=== PATIENT | male | born 1945 | race Caucasian/White ===

== ENCOUNTER 2016-09-08 00:34 | Inpatient (IN) | payer OTHER, BC ==
[2016-09-08] MEDS ORDERED: ACETAMINOPHEN 325 MG TABLET (FP) PO ONE (01:39)
[2016-09-08] MEDS ORDERED: SODIUM CHLORIDE 1,000 ML IV STA ×2 (01:39→08:22)
[2016-09-08] MEDS ORDERED: METOCLOPRAMIDE HCL INJECTION 10 MG/2 ML VIAL IVPB ONE (01:39)
[2016-09-08] MEDS ORDERED: METOCLOPRAMIDE HCL INJECTION 10 MG/2 ML VIAL ONE (01:41)
[2016-09-08] MEDS ORDERED: ACETAMINOPHEN 325 MG TABLET (FP) ONE (01:41)
--- NOTE | 2016-09-08 01:43 | PDOC ---
History of Present Illness - General History Source: Patient, Family Exam Limitations: No Limitations - History of Present Illness Initial Comments: 09/08/16 01:51 The patient is a 71 year old male, with a significant past medical history of HTN (on Benacar) and cerebral aneurysm w/ coil embolism (2012), who presents to the emergency department with nausea, lightheadedness and a mild frontal headache since 7PM this evening. The patient describes the lightheadedness as the room spinning and reports that it is worse when sitting up. The patient reports that he was in his usual state of health this morning and went about his normal day. He reports that he ate chili with jalapenos for dinner and that his symptoms began about a half an hour after he finished dinner. The patient additionally reports left upper extremity tingling for the past 2 hours, just as he was leaving to come his house to come to the ED. The patient denies shortness of breath or chest pain. The patient denies fever, chills, cough, vomiting, diarrhea, dysuria or any recent illnesses. The patients is at the bedside. Allergies: None reported. Past Surgical History: Coil Embolism ([facility] - 2012). Social History: Non smoker. Denies alcohol or drug use. PCP: Dr. Meghana Gallego Neurologist: Dr. Gera Dobson ([facility]) <Naty Auguste - Last Filed: 09/08/16 01:55> <Candy Mederos - Last Filed: 09/09/16 19:59> - General History Source: Patient Exam Limitations: No Limitations <Musa Lou - Last Filed: 09/13/16 13:41> - General Chief Complaint: Lightheaded Stated Complaint: NAUSEA Time Seen by Provider: 09/08/16 00:38 Past History <Naty Auguste - Last Filed: 09/08/16 01:55> <Candy Mederos - Last Filed: 09/09/16 19:59> - Past Medical History Anemia: No Asthma: No Cancer: No Cardiac Disorders: No CVA: No COPD: No CHF: No Dementia: No Diabetes: No GI Disorders: No Disorders: No HTN: No Hypercholesterolemia: No Liver Disease: No Seizures: No Thyroid Disease: No - Psycho/Social/Smoking Cessation Hx Anxiety: No Suicidal Ideation: No Smoking History: Never smoked Have you smoked in the past 12 months: No Information on smoking cessation initiated: No Hx Alcohol Use: No Drug/Substance Use Hx: No Substance Use Type: None Hx Substance Use Treatment: No <Musa Lou - Last Filed: 09/13/16 13:41> - Past Medical History Allergies/Adverse Reactions: Allergies Allergy/AdvReac Type Severity Reaction Status Date / Time No Known Allergies Allergy Verified 09/08/16 00:46 Home Medications: Ambulatory Orders Meclizine HCl [Antivert -] 25 mg PO QID #28 tablet 09/08/16 Olmesartan Medoxomil [Benicar -] 40 mg PO DAILY 09/08/16 Acetaminophen [Tylenol .Regular Strength -] 650 mg PO Q6H PRN #0 tablet Meclizine HCl [Antivert -] 25 mg PO Q8H PRN #30 tablet 09/09/16 Review of Systems - Review of Systems Able to Perform ROS?: Yes Comments:: 09/08/16 01:51 GENERAL/CONSTITUTIONAL: No fever or chills. No weakness. HEAD, EYES, EARS, NOSE AND THROAT: No change in vision. No ear pain or discharge. No sore throat. CARDIOVASCULAR: +Lightheadedness. No chest pain or shortness of breath. RESPIRATORY: No cough, wheezing, or hemoptysis. GASTROINTESTINAL: +Nausea. No vomiting, diarrhea or constipation. GENITOURINARY: No dysuria, frequency, or change in urination. MUSCULOSKELETAL: No joint or muscle swelling or pain. No neck or back pain. SKIN: No rash. NEUROLOGIC: +Tingling of left upper extremity, headache. No vertigo, loss of consciousness, or change in strength. ENDOCRINE: No increased thirst. No abnormal weight change. HEMATOLOGIC/LYMPHATIC: No anemia, easy bleeding, or history of blood clots. ALLERGIC/IMMUNOLOGIC: No hives or skin allergy. <Naty Auguste - Last Filed: 09/08/16 01:55> *Physical Exam - Vital Signs Last Vital Signs Temp Pulse Resp BP Pulse Ox 97.4 F L 58 L 18 113/91 98 09/08/16 00:46 09/08/16 00:46 09/08/16 00:46 09/08/16 00:46 09/08/16 00:46 - Physical Exam Comments: 09/08/16 01:51 GENERAL: Awake, alert, and fully oriented, in no acute distress. HEAD: No signs of trauma. EYES: PERRLA, EOMI, sclera anicteric, conjunctiva clear. ENT: Auricles normal inspection, hearing grossly normal, nares patent, oropharynx clear without exudates. Moist mucosa. NECK: Normal ROM, supple, no lymphadenopathy, JVD, or masses. LUNGS: Breath sounds equal, clear to auscultation bilaterally. No wheezes, and no crackles. HEART: Regular rate and rhythm, normal S1 and S2, no murmurs, rubs or gallops. ABDOMEN: Soft, nontender, normoactive bowel sounds. No guarding, no rebound. No masses. EXTREMITIES: Normal range of motion, no edema. No clubbing or cyanosis. No cords, erythema, or tenderness. NEUROLOGICAL: Cranial nerves II through XII grossly intact. 5/5 strength of both the upper and lower extremities. Sensations intact throughout. No pronator drift. Finger to nose intact. Normal speech, normal gait. SKIN: Warm, dry, normal turgor, no rashes or lesions noted. <Naty Auguste - Last Filed: 09/08/16 01:55> - Vital Signs Last Vital Signs Temp Pulse Resp BP Pulse Ox 97.4 F L 56 L 18 137/90 97 09/08/16 00:46 09/08/16 05:06 09/08/16 05:06 09/08/16 05:06 09/08/16 05:06 <Candy Mederos - Last Filed: 09/09/16 19:59> - Vital Signs Last Vital Signs Temp Pulse Resp BP Pulse Ox 97.4 F L 58 L 18 113/91 98 09/08/16 00:46 09/08/16 00:46 09/08/16 00:46 09/08/16 00:46 09/08/16 00:46 - Physical Exam Comments: 09/13/16 13:41 CORRECTION TO SCRIBE NOTE: CN II-II INTACT, not grossly intact. <Musa Lou - Last Filed: 09/13/16 13:41> ED Treatment Course - LABORATORY CBC & Chemistry Diagram: 09/08/16 01:45 09/08/16 01:45 <Naty Auguste - Last Filed: 09/08/16 01:55> - LABORATORY CBC & Chemistry Diagram: 09/09/16 07:40 09/09/16 07:40 - ADDITIONAL ORDERS Additional order review: Laboratory Results 09/08/16 09/08/16 09/08/16 04:06 01:45 01:45 Sodium 141 Potassium 3.7 Chloride 105 Carbon Dioxide 27 Anion Gap 9 BUN 19 H Creatinine 0.8 D Creat Clearance w eGFR > 60 Random Glucose 133 H D Calcium 8.6 Total Bilirubin 0.5 D AST 14 L D ALT 19 Alkaline Phosphatase 74 D Creatine Kinase 140 151 D Creatine Kinase Index 1.3 CK-MB (CK-2) 1.946 CK-MB (CK-2) Rel Index Cancelled Troponin I < 0.02 < 0.02 Total Protein 6.0 L Albumin 3.8 09/08/16 01:45 RBC 5.24 MCV 83.7 MCHC 33.6 RDW 12.9 MPV 7.9 Neutrophils % 74.4 Lymphocytes % 18.2 D Monocytes % 6.2 D Eosinophils % 0.8 D Basophils % 0.4 D - Medications Given in the ED: ED Medications Discontinued Medications Generic Name Dose Route Start Last Admin Trade Name Freq PRN Reason Stop Dose Admin Acetaminophen 650 mg 09/08/16 01:39 09/08/16 02:26 Tylenol - PO 09/08/16 01:40 650 mg ONCE ONE Administration Sodium Chloride 1,000 mls @ 1,000 mls/hr 09/08/16 01:39 09/08/16 01:51 Normal Saline - IV 09/08/16 02:38 1,000 mls/hr ASDIR STA Administration Metoclopramide HCl 10 mg 09/08/16 01:39 09/08/16 01:51 Reglan Injection - IVPB 09/08/16 01:40 10 mg ONCE ONE Administration <Candy Mederos - Last Filed: 09/09/16 19:59> - LABORATORY CBC & Chemistry Diagram: 09/09/16 07:40 09/09/16 07:40 - RADIOLOGY Radiology Studies Ordered: Category Date Time Status HEAD CT WITHOUT CONTRAST [CT] Stat CT Scan 09/08/16 01:39 Ordered CHEST PA & LAT [RAD] Stat Radiology 09/08/16 01:34 Ordered <Musa Lou - Last Filed: 09/13/16 13:41> Medical Decision Making - Medical Decision Making 09/08/16 05:41 Patient Name: Yimi Martinez THIS IS A PRELIMINARY REPORT FROM IMAGING PAEDIATRIC SURGEON EXAM: CT of the brain without contrast. IMAGES: 78. There is no intra/extra- axial hemorrhage, vasogenic edema/focal mass effect or CT evidence of acute infarction; mild-moderate white matter presumed microvascular disease changes. No disproportionate ventriculomegaly. ACom aneurysm coils. The visualized portions of the paranasal sinuses, orbits and tympanomastoid cavities are unremarkable. Impression: no hemorrhage. THIS DOCUMENT HAS BEEN ELECTRONICALLY SIGNED Pt just vomited up the chilli that he made. His symptoms are likely due to food poisoning/intolerance. Pt will be sent home with . I will prescrive meclizine for vertigo. Pt has TMs clear bilaterlly, partially obscured by cerumen, but no complete wax blockage. Pt will also be given zofran prior to departure now. Pt states that he continues to feel dizzy, so day ER team will discharge him. <Candy Mederos - Last Filed: 09/09/16 19:59> - Medical Decision Making 09/08/16 01:45 A portion of this note was documented by scribe services under my direction. I have reviewed the details of the note, within reason, and agree with the documentation with the following case summary and management plan written by me. Patient treated in the ED. Nursing notes are reviewed and incorporated into the medical decision-making. Vital signs reviewed. Peripheral IV access obtained by the nurse, laboratory studies are drawn and sent, reviewed and interpreted by myself. Vital Signs Temp Pulse Resp BP Pulse Ox 97.4 F L 58 L 18 113/91 98 09/08/16 00:46 09/08/16 00:46 09/08/16 00:46 09/08/16 00:46 09/08/16 00:46 71 year old male with past medical history of HTN, cerebral aneurysm s/p coiling in 2012 at [facility] presents with lightheadedness. The patient was in his usual state of health when he had jalapenos and chili for dinner at 7 pm. At approx 7:15 to 7:30 pm, patient felt lightheaded, worse with sitting up. [place] nauseous and had mild frontal headache. Prior to arrival to ED , he felt tingling in his left fingers but denied chest pain and SOB. Pt is concerned about his cerebral aneurysm. Not worst headache of life. Patient had an MRI/MRA performed at [place] on June 2016. Pt brought results with him, which demonstrated stable to improved aneurysm. I have low suspicion for ACS or for ruptured cerebral aneursym. Will perform two troponins and head CT and observe for several hours. If workup is negative and patient reports feeling better, he can be discharged with PMD follow up. It is certainly very possible that the patient's symptoms could be a reaction from the chili and jalapenos. Patient is reliable and follows up with Dr. Gallego. 09/08/16 01:56 Case signed out to [facility] ED attending Dr. Mederos for further management and disposition. <Musa Lou - Last Filed: 09/13/16 13:41> *DC/Admit/Observation/Transfer - Attestations Scribe Attestion: 09/08/16 01:52 Documentation prepared by Naty Auguste, acting as medical sales associate for Musa Lou MD. <Naty Auguste - Last Filed: 09/08/16 01:55> - Discharge Dispostion Admit: No <Candy Mederos - Last Filed: 09/09/16 19:59> <Musa Lou - Last Filed: 09/13/16 13:41> Diagnosis at time of Disposition: Vertigo - Discharge Dispostion Disposition: HOME Condition at time of disposition: Stable - Prescriptions - Referrals - Patient Instructions
[2016-09-08 01:54] LABS: BASOPHIL 0.4 % (0-2.0); EOSINOPHIL 0.8 % (0-4.5); MCH 28.1 pg (25.7-33.7); MCHC 33.6 g/dl (32.0-35.9); MEAN CELL VOLUME 83.7 fl (80-96); MEAN PLT VOLUME 7.9 fl (7.5-11.1); NEUTROPHILS 74.4 % (42.8-82.8); PLATELET COUNT 169 K/MM3 (134-434); RDW 12.9 % (11.9-15.9); WHITE BLOOD COUNT 5.7 K/mm3 (4.0-10.0)
[2016-09-08 02:25] LABS: ALBUMIN 3.8 g/dl (3.4-5.0); ANION GAP 9 (8-16); BILIRUBIN,TOTAL 0.5 mg/dL (0.2-1.0); CALCIUM 8.6 mg/dL (8.5-10.1); CO2 27 mmol/L (21-32); CREATININE 0.8 mg/dL (0.7-1.3); GLUCOSE,RANDOM 133 mg/dL (74-106); SGOT/AST 14 U/L (15-37); SGPT/ALT 19 U/L (12-78)
[2016-09-08 02:27] LABS: ALK PHOS 74 U/L (45-117); TROPONIN I < 0.02 ng/ml (0.00-0.05)
[2016-09-08 04:39] LABS: TROPONIN I < 0.02 ng/ml (0.00-0.05)
[2016-09-08] MEDS ORDERED: ONDANSETRON 4 MG/2 ML VIAL ONE (05:18)
[2016-09-08] MEDS ORDERED: MECLIZINE HCL 25 MG TABLET (FP) ONE (05:18)
[2016-09-08] MEDS ORDERED: ONDANSETRON 4 MG/2 ML VIAL IVPB ONE (05:18)
[2016-09-08] MEDS: MECLIZINE HCL 25 MG TABLET (FP) PO ONE ×2 (05:40→06:54)
[2016-09-08] MEDS ORDERED: diazePAM CARPU-JECT 10 MG/2 ML DISP.SYRIN IVPUSH ONE (08:22)
--- NOTE | 2016-09-08 08:22 | PDOC ---
*Physical Exam - Vital Signs Last Vital Signs Temp Pulse Resp BP Pulse Ox 97.4 F L 64 18 124/64 97 09/08/16 00:46 09/08/16 06:07 09/08/16 06:07 09/08/16 05:44 09/08/16 06:07 <ReguloNina - Last Filed: 09/08/16 11:40> - Vital Signs Last Vital Signs Temp Pulse Resp BP Pulse Ox 97.4 F L 64 18 124/64 97 09/08/16 00:46 09/08/16 06:07 09/08/16 06:07 09/08/16 05:44 09/08/16 06:07 <Bella Ospina - Last Filed: 09/08/16 21:04> ED Treatment Course - LABORATORY CBC & Chemistry Diagram: 09/08/16 01:45 09/08/16 01:45 - ADDITIONAL ORDERS Additional order review: Laboratory Results 09/08/16 09/08/16 09/08/16 04:06 01:45 01:45 Sodium 141 Potassium 3.7 Chloride 105 Carbon Dioxide 27 Anion Gap 9 BUN 19 H Creatinine 0.8 D Creat Clearance w eGFR > 60 Random Glucose 133 H D Calcium 8.6 Total Bilirubin 0.5 D AST 14 L D ALT 19 Alkaline Phosphatase 74 D Creatine Kinase 140 151 D Creatine Kinase Index 1.3 CK-MB (CK-2) 1.946 CK-MB (CK-2) Rel Index Cancelled Troponin I < 0.02 < 0.02 Total Protein 6.0 L Albumin 3.8 09/08/16 01:45 RBC 5.24 MCV 83.7 MCHC 33.6 RDW 12.9 MPV 7.9 Neutrophils % 74.4 Lymphocytes % 18.2 D Monocytes % 6.2 D Eosinophils % 0.8 D Basophils % 0.4 D - Medications Given in the ED: ED Medications Discontinued Medications Generic Name Dose Route Start Last Admin Trade Name Mendoza PRN Reason Stop Dose Admin Acetaminophen 650 mg 09/08/16 01:39 09/08/16 02:26 Tylenol - PO 09/08/16 01:40 650 mg ONCE ONE Administration Diazepam 5 mg 09/08/16 08:22 09/08/16 08:34 Valium Injection - IVPUSH 09/08/16 08:23 5 mg ONCE ONE Administration Diazepam 5 mg 09/08/16 09:24 09/08/16 09:50 Valium - PO 09/08/16 09:25 5 mg ONCE ONE Administration Sodium Chloride 1,000 mls @ 1,000 mls/hr 09/08/16 01:39 09/08/16 01:51 Normal Saline - IV 09/08/16 02:38 1,000 mls/hr ASDIR STA Administration Sodium Chloride 1,000 mls @ 1,000 mls/hr 09/08/16 08:22 09/08/16 08:34 Normal Saline - IV 09/08/16 09:21 1,000 mls/hr ASDIR STA Administration Meclizine HCl 50 mg 09/08/16 05:18 09/08/16 06:54 Antivert - PO 09/08/16 05:19 50 mg ONCE ONE Administration Metoclopramide HCl 10 mg 09/08/16 01:39 09/08/16 01:51 Reglan Injection - IVPB 09/08/16 01:40 10 mg ONCE ONE Administration Ondansetron HCl 4 mg 09/08/16 05:18 09/08/16 05:23 Zofran Injection IVPB 09/08/16 05:19 4 mg ONCE ONE Administration <Nina Rajput - Last Filed: 09/08/16 11:40> - LABORATORY CBC & Chemistry Diagram: 09/08/16 01:45 09/08/16 01:45 - ADDITIONAL ORDERS Additional order review: Laboratory Results 09/08/16 09/08/16 09/08/16 04:06 01:45 01:45 Sodium 141 Potassium 3.7 Chloride 105 Carbon Dioxide 27 Anion Gap 9 BUN 19 H Creatinine 0.8 D Creat Clearance w eGFR > 60 Random Glucose 133 H D Calcium 8.6 Total Bilirubin 0.5 D AST 14 L D ALT 19 Alkaline Phosphatase 74 D Creatine Kinase 140 151 D Creatine Kinase Index 1.3 CK-MB (CK-2) 1.946 CK-MB (CK-2) Rel Index Cancelled Troponin I < 0.02 < 0.02 Total Protein 6.0 L Albumin 3.8 09/08/16 01:45 RBC 5.24 MCV 83.7 MCHC 33.6 RDW 12.9 MPV 7.9 Neutrophils % 74.4 Lymphocytes % 18.2 D Monocytes % 6.2 D Eosinophils % 0.8 D Basophils % 0.4 D - Medications Given in the ED: ED Medications Discontinued Medications Generic Name Dose Route Start Last Admin Trade Name Mendoza PRN Reason Stop Dose Admin Acetaminophen 650 mg 09/08/16 01:39 09/08/16 02:26 Tylenol - PO 09/08/16 01:40 650 mg ONCE ONE Administration Sodium Chloride 1,000 mls @ 1,000 mls/hr 09/08/16 01:39 09/08/16 01:51 Normal Saline - IV 09/08/16 02:38 1,000 mls/hr ASDIR STA Administration Meclizine HCl 50 mg 09/08/16 05:18 09/08/16 06:54 Antivert - PO 09/08/16 05:19 50 mg ONCE ONE Administration Metoclopramide HCl 10 mg 09/08/16 01:39 09/08/16 01:51 Reglan Injection - IVPB 09/08/16 01:40 10 mg ONCE ONE Administration Ondansetron HCl 4 mg 09/08/16 05:18 09/08/16 05:23 Zofran Injection IVPB 09/08/16 05:19 4 mg ONCE ONE Administration <Bella Ospina - Last Filed: 09/08/16 21:04> Medical Decision Making - Medical Decision Making 09/08/16 11:[address] Tho Seaman who is covering for Dr. Meghana Gallego (via answering service) at 11:18 Awaiting call back Patient's case discussed with Dr. Seaman at 11:40 <Nina Rajput - Last Filed: 09/08/16 11:40> - Medical Decision Making 09/08/16 08:02 Called to bedside by RN. Patient was discharged on prior shift, but at time of discharge, c/o dizziness. I discussed with Dr. Mederos regarding management on prior shift. 09/08/16 08:22 Patient evaluated at bedside. He states that he has been having nausea and vomiting since last night. He made chili, and attributed his symptoms to the jalapeno peppers that he added (does not usually use them). He notes that he gets dizzy whenever he moves his eyes or head, and while we spoke, he was unable to open his eyes due to extreme dizziness. He noted that he did not improve with zofran and meclizine. On exam, patient keeps his head completely still, does not open eyes. Appears mildly pale. He had a negative head CT (has prior history of aneurysm s/p coil). I will give additional IV fluids, as well as IV valium. Will cancel DC for now and continue to monitor. 09/08/16 09:24 Patient reassessed. He states that his symptoms have improved. He is now able to open his eyes and move his head, but is still having dizziness, not yet at baseline. I will give an additional dose of valium, but this time will give PO, then reassess. If he improves, will DC home. 09/08/16 11:07 Pt reassessed. He ambulated to the bathroom, and initially did not have any difficulty. However, when he returned to the stretcher, he became dizzy again. Noted to have horizontal nystagmus on exam. Again appears mildly pale. At this point, he has had multiple medications, but continues to have vertigo. I will page Dr. Gallego for admission. 09/08/16 11:41 Case d/w Dr. Seaman, will admit for Dr. Gallego. 09/08/16 11:46 Case d/w Dr. Pearson in ED, will evaluate. <Bella Ospina - Last Filed: 09/08/16 21:04> *DC/Admit/Observation/Transfer <Nina Rajput - Last Filed: 09/08/16 11:40> - Discharge Dispostion Admit: Yes <Bella Ospina - Last Filed: 09/08/16 21:04> Diagnosis at time of Disposition: Vertigo - Discharge Dispostion Condition at time of disposition: Stable - Prescriptions - Referrals - Patient Instructions - Post Discharge Activity
[2016-09-08] MEDS ORDERED: diazePAM CARPU-JECT 10 MG/2 ML DISP.SYRIN ONE (08:28)
[2016-09-08] MEDS ORDERED: diazePAM 5 MG TABLET PO ONE (09:24)
[2016-09-08] MEDS ORDERED: diazePAM 5 MG TABLET ONE (09:47)
[2016-09-08] MEDS ORDERED: ACETAMINOPHEN 325 MG TABLET (FP) PO PRN (12:08)
--- NOTE | 2016-09-08 13:04 | CONSULT ---
Consult - text type - Consultation Consultation Note: Neurology The patient is a 71 year old male, with a significant past medical history of HTN (on Benacar) and cerebral aneurysm w/ coil embolism (2012), who presented to the emergency department with nausea, dizzyness and a mild frontal headache since 7PM yesterday evening. The patient describes the dizzyness as the room spinning and reports that it is worse when sitting up. The patient denies shortness of breath or chest pain. The patient denies fever, chills, cough, vomiting, diarrhea, dysuria or any recent illnesses. The patients is at the bedside. He is known to me from prior admission in which he was transferred to [place] for aneurysm coil embolism. His most recent MRI was actually improved with aneurysm size 1.7mm. Ct head completed overnight and without acute changes. Current symptoms do not seem due to this and MRI was from two months ago. More likely BPPV. Past History - Past Medical History Anemia: No Asthma: No Cancer: No Cardiac Disorders: No CVA: No COPD: No CHF: No Dementia: No Diabetes: No GI Disorders: No Disorders: No HTN: No Hypercholesterolemia: No Liver Disease: No Seizures: No Thyroid Disease: No - Psycho/Social/Smoking Cessation Hx Anxiety: No Suicidal Ideation: No Smoking History: Never smoked Have you smoked in the past 12 months: No Information on smoking cessation initiated: No Hx Alcohol Use: No Drug/Substance Use Hx: No Substance Use Type: None Hx Substance Use Treatment: No - Past Medical History Allergies/Adverse Reactions: Allergies Allergy/AdvReac Type Severity Reaction Status Date / Time No Known Allergies Allergy Verified 09/08/16 00:46 Home Medications: Ambulatory Orders No Home Medications 0 dose .ROUTE UTDICT 12/25/13 Meclizine HCl [Antivert -] 25 mg PO QID #28 tablet 09/08/16 Review of Systems GENERAL/CONSTITUTIONAL: No fever or chills. No weakness. HEAD, EYES, EARS, NOSE AND THROAT: No change in vision. No ear pain or discharge. No sore throat. CARDIOVASCULAR: +Lightheadedness. No chest pain or shortness of breath. RESPIRATORY: No cough, wheezing, or hemoptysis. GASTROINTESTINAL: +Nausea. No vomiting, diarrhea or constipation. GENITOURINARY: No dysuria, frequency, or change in urination. MUSCULOSKELETAL: No joint or muscle swelling or pain. No neck or back pain. SKIN: No rash. NEUROLOGIC: +Tingling of left upper extremity, headache. No vertigo, loss of consciousness, or change in strength. ENDOCRINE: No increased thirst. No abnormal weight change. HEMATOLOGIC/LYMPHATIC: No anemia, easy bleeding, or history of blood clots. ALLERGIC/IMMUNOLOGIC: No hives or skin allergy. *Physical Exam - Vital Signs Last Vital Signs Temp Pulse Resp BP Pulse Ox 97.4 F L 58 L 18 113/91 98 09/08/16 00:46 09/08/16 00:46 09/08/16 00:46 09/08/16 00:46 09/08/16 00:46 GENERAL: Awake, alert, and fully oriented, in no acute distress. HEAD: No signs of trauma. EYES: PERRLA, EOMI, sclera anicteric, conjunctiva clear. ENT: Auricles normal inspection, hearing grossly normal, nares patent, oropharynx clear without exudates. Moist mucosa. NECK: Normal ROM, supple, no lymphadenopathy, JVD, or masses. LUNGS: Breath sounds equal, clear to auscultation bilaterally. No wheezes, and no crackles. HEART: Regular rate and rhythm, normal S1 and S2, no murmurs, rubs or gallops. ABDOMEN: Soft, nontender, normoactive bowel sounds. No guarding, no rebound. No masses. EXTREMITIES: Normal range of motion, no edema. No clubbing or cyanosis. No cords, erythema, or tenderness. NEUROLOGICAL: Cranial nerves II through XII grossly intact. 5/5 strength of both the upper and lower extremities. Sensations intact throughout. No pronator drift. Finger to nose intact. Normal speech, normal gait. SKIN: Warm, dry, normal turgor, no rashes or lesions noted. Laboratory Results 09/08/16 09/08/16 09/08/16 04:06 01:45 01:45 Sodium 141 Potassium 3.7 Chloride 105 Carbon Dioxide 27 Anion Gap 9 BUN 19 H Creatinine 0.8 D Creat Clearance w eGFR > 60 Random Glucose 133 H D Calcium 8.6 Total Bilirubin 0.5 D AST 14 L D ALT 19 Alkaline Phosphatase 74 D Creatine Kinase 140 151 D Creatine Kinase Index 1.3 CK-MB (CK-2) 1.946 CK-MB (CK-2) Rel Index Cancelled Troponin I < 0.02 < 0.02 Total Protein 6.0 L Albumin 3.8 09/08/16 01:45 RBC 5.24 MCV 83.7 MCHC 33.6 RDW 12.9 MPV 7.9 Neutrophils % 74.4 Lymphocytes % 18.2 D Monocytes % 6.2 D Eosinophils % 0.8 D Basophils % 0.[address] head: No acute changes. There is no intra/extra-axial hemorrhage, vasogenic edema/focal mass effect or CT evidence of acute infarction; mild-moderate white matter presumed microvascular disease changes. No disproportionate ventriculomegaly. ACom aneurysm coils. The visualized portions of the paranasal sinuses, orbits and tympanomastoid cavities are unremarkable. Plan: 71 year old male, with a significant past medical history of HTN (on Benacar) and cerebral aneurysm w/ coil embolism (2012), who presented to the emergency department with nausea, dizzyness and a mild frontal headache since 7PM yesterday evening. The patient describes the dizzyness as the room spinning and reports that it is worse when sitting up. The patient denies shortness of breath or chest pain. Most recent MRI was actually improved with aneurysm size 1.7mm. Ct head completed overnight and without acute changes. Current symptoms do not seem due to this and MRI was from two months ago. More likely BPPV. Meclezine PRN, can use valium 2mg if needed as well Hydration No sudden head movements Continue anti-HTN medications Monitor BP If improved by AM, ok for d/c
--- NOTE | 2016-09-08 13:12 | CON.CARD ---
Consult Consult Specialty:: Cardiology Referred by:: Dr. Seaman Reason for Consultation:: Dizziness - History of Present Illness History of Present Illness: 71 yo male with HTN (on Benicar) and h/o cerebral aneurysm w/ coil embolization , who presented to ED with nausea, lightheadedness/vertigo, and a mild frontal headache last evening ~ 7 PM which patient attributes to eating chili with jalapenos for dinner ~ 30 minutes before. Denies chest pain, palpitations, dyspnea, or syncope. CXR and ECG were unremarkable. Head CT only demonstrated coiling of anterior communicating artery, otherwise no other changes from 2014 study. Patient reports that his last echocardiogram was several years ago in Dr. Gallego's office. 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 (Cerebral artery aneurysm s/p coil embolization) Cardio/Vascular: Yes: HTN - Alcohol/Substance Use Hx Alcohol Use: No - Smoking History Smoking history: Never smoked Have you smoked in the past 12 months: No Home Medications - Allergies Allergies/Adverse Reactions: Allergies Allergy/AdvReac Type Severity Reaction Status Date / Time No Known Allergies Allergy Verified 09/08/16 00:46 - Home Medications Home Medications: Ambulatory Orders No Home Medications 0 dose .ROUTE UTDICT 12/25/13 Meclizine HCl [Antivert -] 25 mg PO QID #28 tablet 09/08/16 Family Disease History - Family Disease History Family History: Denies (premature CAD) Review of Systems - Review of Systems Constitutional: reports: No Symptoms Eyes: reports: No Symptoms HENT: reports: No Symptoms Neck: reports: No Symptoms Cardiovascular: reports: No Symptoms Respiratory: reports: No Symptoms Gastrointestinal: reports: No Symptoms Genitourinary: reports: No Symptoms Musculoskeletal: reports: No Symptoms Neurological: reports: Dizziness Endocrine: reports: No Symptoms Hematology/Lymphatic: reports: No Symptoms Vital Signs: Vital Signs Temperature 97.4 F L 09/08/16 00:46 Pulse Rate 72 09/08/16 12:00 Respiratory Rate 18 09/08/16 12:00 Blood Pressure 118/72 09/08/16 12:00 O2 Sat by Pulse Oximetry (%) 97 09/08/16 12:00 Constitutional: Yes: Well Nourished, No Distress Eyes: Yes: Conjunctiva Clear, EOM Intact HENT: Yes: Atraumatic, Normocephalic Respiratory: Yes: CTA Bilaterally Gastrointestinal: Yes: Normal Bowel Sounds, Soft. No: Tenderness Cardiovascular: Yes: Regular Rate and Rhythm JVD: No Carotid Bruit: No PMI: Non-Displaced Heart Sounds: Yes: S1, S2 Murmur: No: Systolic Murmur Edema: No Peripheral Pulses WNL: Yes Neurological: Yes: Alert, Oriented, Cran Nerves II-XII Intact ...Motor Strength: WNL Psychiatric: Yes: WNL - Other Data 09/08/16 ECG: Sinus rhythm Imaging - Results Chest X-ray: Report Reviewed (09/08/16: No acute process), Image Reviewed Assessment/Plan 71 yo male with HTN (on Benicar) and h/o cerebral aneurysm w/ coil embolization , who presented to ED with nausea, lightheadedness/vertigo, and a mild frontal headache last evening ~ 7 PM which patient attributes to eating chili with jalapenos for dinner ~ 30 minutes before. No symptoms to suggest cardiac disease and no physical exam findings to explain cause of dizziness. Suspect possible inner ear disorder. No active cardiac issues. RECS: Would resume patient's Benicar if BP becomes uncontrolled. Would recommend outpatient echocardiogram in Dr. Gallego's office. No inpatient cardiac evaluation is clinically indicated. Will see prn. Call with questions. Further recs and discharged planning as per neurology and family medicine.
[2016-09-08 13:14] LABS: TROPONIN I < 0.02 ng/ml (0.00-0.05)
--- NOTE | 2016-09-08 13:33 | EKG ---
Test Reason : Blood Pressure : / mmHG Vent. Rate : 062 BPM Atrial Rate : 062 BPM P-R Int : 164 ms QRS Dur : 092 ms QT Int : 428 ms P-R-T Axes : 022 -02 036 degrees QTc Int : 434 ms NORMAL SINUS RHYTHM WHEN COMPARED WITH ECG OF 25-DEC-2013 10:54, T WAVE VARIATION Confirmed by GODFREY RICHARDS MD ([id number]) on 09/08/2016 1:33:20 PM Referred By: Confirmed By:GODFREY RICHARDS MD
[2016-09-08 14:00] VITALS: BMI 28.4
[2016-09-08] MEDS: VALSARTAN 160 MG TABLET (UD) PO SCH (16:20)
[2016-09-08] MEDS: MECLIZINE HCL 25 MG TABLET (FP) PO PRN (17:23)
[2016-09-09] MEDS ORDERED: PT OWN MED DRAWER 7, Y5N ONE ×3 (01:41→11:03)
[2016-09-09] MEDS: MECLIZINE HCL 25 MG TABLET (FP) PO PRN ×2 (02:02→11:05)
[2016-09-09 08:36] LABS: BASOPHIL 0.2 % (0-2.0); EOSINOPHIL 0.8 % (0-4.5); MCH 28.4 pg (25.7-33.7); MCHC 33.8 g/dl (32.0-35.9); MEAN CELL VOLUME 83.8 fl (80-96); MEAN PLT VOLUME 8.4 fl (7.5-11.1); NEUTROPHILS 63.7 % (42.8-82.8); PLATELET COUNT 160 K/MM3 (134-434); RDW 13.4 % (11.9-15.9); WHITE BLOOD COUNT 7.1 K/mm3 (4.0-10.0)
[2016-09-09 08:51] LABS: ALBUMIN 3.5 g/dl (3.4-5.0); ANION GAP 11 (8-16); BILIRUBIN,TOTAL 0.6 mg/dL (0.2-1.0); CALCIUM 8.7 mg/dL (8.5-10.1); CO2 27 mmol/L (21-32); CREATININE 0.8 mg/dL (0.7-1.3); GLUCOSE,RANDOM 88 mg/dL (74-106); SGOT/AST 15 U/L (15-37); SGPT/ALT 18 U/L (12-78); TOT PROT 5.8 g/dl (6.4-8.2)
[2016-09-09 08:53] VITALS: BP 136/77; PULSE 63; TEMP 98.4
[2016-09-09] MEDS: VALSARTAN 160 MG TABLET (UD) PO SCH (09:06)
[2016-09-09 09:17] LABS: ALK PHOS 67 U/L (45-117); TROPONIN I < 0.02 ng/ml (0.00-0.05)
[2016-09-09 09:24] LABS: THYROID STIMULATING HORMONE 1.41 uIU/ml (0.358-3.74)
--- NOTE | 2016-09-09 10:39 | HP ---
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 (Cerebral artery aneurysm s/p coil embolization) Cardiovascular: Yes: HTN - Advance Directives Advance Directives: Yes: Health Care Proxy - Smoking History Smoking history: Never smoked Have you smoked in the past 12 months: No - Alcohol/Substance Use Hx Alcohol Use: No Home Medications - Allergies Allergies/Adverse Reactions: Allergies Allergy/AdvReac Type Severity Reaction Status Date / Time No Known Allergies Allergy Verified 09/08/16 00:46 - Home Medications Home Medications: Ambulatory Orders Meclizine HCl [Antivert -] 25 mg PO QID #28 tablet 09/08/16 Olmesartan Medoxomil [Benicar (Nf)] 40 mg PO DAILY 09/08/16 Review of Systems - Review of Systems Constitutional: denies: Chills, Fever Cardiovascular: denies: Chest Pain Respiratory: denies: SOB Gastrointestinal: denies: Abdominal Pain Neurological: reports: Dizziness (IMPROVED) Physical Examination Vital Signs: Vital Signs Temperature 98.4 F 09/09/16 08:52 Pulse Rate 63 09/09/16 08:52 Respiratory Rate 20 09/09/16 08:52 Blood Pressure 136/77 09/09/16 08:52 O2 Sat by Pulse Oximetry (%) 97 09/08/16 21:00 Constitutional: Yes: Calm Eyes: Yes: PERRL HENT: Yes: Normocephalic Neck: Yes: Supple Cardiovascular: Yes: Regular Rate and Rhythm, S1, S2 Respiratory: Yes: Regular, CTA Bilaterally Gastrointestinal: Yes: Normal Bowel Sounds, Soft Edema: No Labs: CBC, BMP 09/09/16 07:40 09/09/16 07:40 Imaging - Results Chest X-ray: Report Reviewed Cat Scan: Report Reviewed EKG: Report Reviewed Problem List - Problems (1) Vertigo Code(s): R42 - DIZZINESS AND GIDDINESS (2) HTN (hypertension) Code(s): I10 - ESSENTIAL (PRIMARY) HYPERTENSION (3) Cerebral aneurysm Code(s): I67.1 - CEREBRAL ANEURYSM, NONRUPTURED Assessment/Plan The patient is a 71 year old male, with a significant past medical history of HTN (on Benacar) and cerebral aneurysm w/ coil embolism (2012), who presents to the emergency department with nausea, lightheadedness and a mild frontal headache since 7PM this evening. The patient describes the lightheadedness as the room spinning and reports that it is worse when sitting up. The patient reports that he was in his usual state of health this morning and went about his normal day. He reports that he ate chili with jalapenos for dinner and that his symptoms began about a half an hour after he finished dinner. The patient additionally reports left upper extremity tingling for the past 2 hours, just as he was leaving to come his house to come to the ED. The patient denies shortness of breath or chest pain. The patient denies fever, chills, cough, vomiting, diarrhea, dysuria or any recent illnesses. The patients is at the bedside. Allergies: None reported. Past Surgical History: Coil Embolism ([facility] - 2012). Social History: Non smoker. Denies alcohol or drug use. PCP: Dr. Meghana Gallego Neurologist: Dr. Gera Dobson ([facility]) (1) Vertigo Code(s): R42 - DIZZINESS AND GIDDINESS APPRECIATE NEURO & CARDIO CONSULTS LIKELY BPPV IMPROVED ON ANTIVERT (2) HTN (hypertension) Code(s): I10 - ESSENTIAL (PRIMARY) HYPERTENSION ACCEPTABLE (3) Cerebral aneurysm Code(s): I67.1 - CEREBRAL ANEURYSM, NONRUPTURED H/O REPAIR CTB -> NO ACUTE EVENT DISCHARGE PLANNING FOR 09/10 PASTOR MORROW
[2016-09-10] MEDS ORDERED: PATIENT'S OWN MEDICATION (NON-FORMULARY) (Olmesartan Medoxomil 40 MG) PO SCH (10:00)
== END 2016-09-09 15:21 | disposition home or self-care (01) | DRG 149 ==
LOC: JER 00:34 → JERBED 11:41 → UNDOADMIN 11:44 → J8W 14:08 → JERBED 14:08
PROVIDERS: ADMIT Family Medicine; ATTEND Family Medicine
DX: H81.10 Benign paroxysmal vertigo, unspecified ear (principal); I10 Essential (primary) hypertension
CPT/HCPCS: 36415; 70450-TC; 71020-TC; 80053; 82550; 82553; 82607; 84443; 84484; 85025; 86593; 93005; 93010; 97116-GP; 97161-GP; 99284-25

== ENCOUNTER 2017-06-17 08:50 | Day surgery (SDC) | payer OTHER ==
[2017-06-14 12:08] VITALS: BMI 27.3
[2017-06-17 09:30] VITALS: TEMP 97.6
[2017-06-17] MEDS ORDERED: LIDOCAINE HCL/PF 1% SDV 5ML VIAL ONE (09:52)
[2017-06-17 14:18] VITALS: BP 118/86; PULSE 58
--- NOTE | 2017-06-18 13:23 | PATH ---
Surgical Pathology Report Patient Name: MELANIE RUTHERFORD [facility]. Rec. #: [id number] /Age/Gender: 1945 (Age: 72) / M Account: [id number] Location: U-ENDOSCOPY Taken: 06/17/2017 Received: 06/17/2017 Reported: 06/18/2017 Physicians: Gregoyr Muro M.D. Specimen(s) Received A: POLYP RECTUM B: BX POLYPS DISTAL TRANSVERSE COLON C: POLYPS RIGHT COLON Clinical History Preoperative diagnosis: Adenoma surveillance, ??? Postoperative diagnosis: Diverticulosis, colon polyps Final Diagnosis A. COLON, RECTUM, BIOPSY: COLONIC MUCOSA WITH NO PATHOLOGIC CHANGES. NO ACTIVE COLITIS, ARCHITECTURAL DISTORTION, GRANULOMATA, OR DYSPLASIA IDENTIFIED. NO MICROSCOPIC COLITIS IDENTIFIED (NO LYMPHOCYTIC OR COLLAGENOUS COLITIS IDENTIFIED). B. COLON, DISTAL TRANSVERSE, BIOPSY: COLONIC MUCOSA WITH NO PATHOLOGIC CHANGES. NO ACTIVE COLITIS, ARCHITECTURAL DISTORTION, GRANULOMATA, OR DYSPLASIA IDENTIFIED. NO MICROSCOPIC COLITIS IDENTIFIED (NO LYMPHOCYTIC OR COLLAGENOUS COLITIS IDENTIFIED). C. COLON, RIGHT, BIOPSY: TUBULAR ADENOMA. Electronically Signed Jonathan Cohn M.D. Gross Description A. Received in formalin, labeled "biopsy polyp rectum" are 2 young, irregular portions of soft tissue averaging 0.2 cm. in greatest dimension. The specimens are submitted in toto in one cassette. B. Received in formalin, labeled "biopsy polyps distal transverse colon" are 2 young, irregular portions of soft tissue averaging 0.5 cm. in greatest dimension. The specimens are submitted in toto in one cassette. C. Received in formalin, labeled "polyps right colon" are 3 young, irregular portions of soft tissue ranging from 0.1-0.3 cm. in greatest dimension. The specimens are submitted in toto in one cassette. DL/06/17/2017 saudi06/17/2017
== END 2017-06-17 11:50 | disposition home or self-care (01) ==
LOC: JASU-ENDO 08:50
PROVIDERS: ATTEND Internal Medicine Gastroenterology
PROC: 0DBP8ZX Excision of Rectum, Via Natural or Artificial Opening Endoscopic, Diagnostic (ICD-10-PCS; 2017-06-17)
PROC: 0DBL8ZX Excision of Transverse Colon, Via Natural or Artificial Opening Endoscopic, Diagnostic (ICD-10-PCS; 2017-06-17)
PROC: 0DBK8ZX Excision of Ascending Colon, Via Natural or Artificial Opening Endoscopic, Diagnostic (ICD-10-PCS; principal; 2017-06-17 10:00)
DX: Z86.010 Personal history of colon polyps (principal); K62.1 Rectal polyp; K64.8 Other hemorrhoids; D12.2 Benign neoplasm of ascending colon; D12.3 Benign neoplasm of transverse colon; K57.30 Diverticulosis of large intestine without perforation or abscess without bleeding
CPT/HCPCS: 88305-TC

== ENCOUNTER 2018-10-08 08:51 | Day surgery (SDC) | payer OTHER ==
[2018-10-02 10:18] VITALS: BMI 26.8
--- NOTE | 2018-10-02 10:30 | HP ---
DATE OF ADMISSION: 10/08/2018 DATE OF SURGERY: Patient to be admitted to the [facility] ambulatory surgical service. HISTORY: This is a 73-year-old man admitted to the hospital for reduction and repair of a chronically incarcerated left inguinal hernia with mesh. According to the patient, for the past several weeks he had developed a painful lump at the level of the left groin. After bringing this to the attention of his physician, an MRI was completed which demonstrated a 5.6-cm fat-containing incarcerated left inguinal hernia. Incidental findings on that MRI also demonstrated an enlarged prostate as well as a questionable polypoid lesion of the bladder and a 1.2-cm nodule in the posterior peripheral zone at the base of the prostate which was suspicious. After discussion with both the patient and his PMD, considering he is uncomfortable with his incarcerated left inguinal hernia, we have agreed to repair the hernia , and then he would subsequently move on to undergo urologic workup and additional management. No underlying GI or respiratory complaints to suggest predisposition of hernia formation. Patient does admit to having urinary frequency and going 2-4 times at night. He denies difficulty starting a stream, however. PAST MEDICAL HISTORY: Significant for hypertension, and hypercholesterolemia. He also has a history of an anterior communicating cerebral aneurysm which initially was managed with coil embolization in 2013 but required clipping in 2018. Patient also known to have diverticulosis. PAST SURGICAL HISTORY: Otherwise nil. ALLERGIES: None known. CURRENT MEDICATIONS: Benicar, Livalo, amlodipine. SOCIAL HISTORY: Negative tobacco. Negative alcohol. FAMILY HISTORY: Both parents history of cardiovascular disease, parents also with diabetes. Siblings, one with heart disease, one with breast cancer, one with cerebral neoplasia, one with hypertension. REVIEW OF SYSTEMS: Otherwise nil. PHYSICAL EXAMINATION: Patient examined in erect and supine position, there is an obvious moderate to large chronically incarcerated left inguinal hernia which is mildly tender on palpation but irreducible. The right groin is intact. The scrotum is unremarkable. IMPRESSION: Chronically incarcerated left inguinal hernia. PLAN: I have agreed to proceed with left inguinal hernia repair at this juncture. Patient clearly understands he has a multitude of underlying urologic issues that will need to be addressed in the very near future. Indications, alternatives, possible complications of intended procedure reviewed. Consent obtained. Issues relating to the mesh also reviewed. Patient was seen by Dr. Gallego preoperatively. Please refer to his notes for those medical details. MELBA WEBB M.D. DEISY/[id number] MTDD
[2018-10-08] MEDS ORDERED: TAMSULOSIN HCL 0.4 MG CAP ONE (09:33)
[2018-10-08] MEDS ORDERED: DEXAMETHASONE SOD PHOSPHATE/PF 10 MG/ML SDV ONE (09:51)
[2018-10-08] MEDS ORDERED: MIDAZOLAM HCL 2 MG/2 ML SINGLE DOSE VIAL ONE (09:51)
[2018-10-08] MEDS ORDERED: BUPIVACAINE HCL/PF (5 MG/ML) 30 ML VIAL IJ ONE (09:52)
[2018-10-08] MEDS ORDERED: fentaNYL CITRATE 250 MCG/5 ML VIAL ONE (10:44)
[2018-10-08] MEDS ORDERED: ceFAZolin SODIUM 1 GM VIAL ONE (10:55)
[2018-10-08] MEDS ORDERED: ePHEDrine SULFATE 50 MG/1 ML AMPULE ONE (11:01)
[2018-10-08] MEDS ORDERED: ONDANSETRON 4 MG/2 ML VIAL IVPUSH PRN (11:09)
[2018-10-08] MEDS ORDERED: oxyCODONE HCL 5 MG TABLET PO PRN (11:09)
[2018-10-08] MEDS ORDERED: LACTATED RINGERS SOLUTION 1,000 ML IV SCH (11:15)
[2018-10-08] MEDS ORDERED: NEOSTIGMINE METHYLSULFATE 0.5 MG/ML - 10 ML MDV ONE (11:55)
[2018-10-08] MEDS ORDERED: GLYCOPYRROLATE 0.2 MG/1 ML VIAL ONE (11:56)
[2018-10-08 14:10] VITALS: TEMP 97.5
[2018-10-08 15:53] VITALS: BP 135/66; PULSE 89
--- NOTE | 2018-10-09 08:56 | OP ---
DATE OF OPERATION: 10/08/2018 PREOPERATIVE DIAGNOSIS: Chronically incarcerated left inguinal hernia. POSTOPERATIVE DIAGNOSIS: Chronically incarcerated left inguinal hernia. PROCEDURE PERFORMED: Open reduction and repair of chronically incarcerated left inguinal hernia with mesh/intermediate wound culture (8 cm). SURGEON: Mu Mock MD SUPERVISOR BODY ASSEMBLY: Vince Romo MD ANESTHESIA: Jasmeet Castillo MD (general) INDICATIONS: This is a 73-year-old man who presents for repair of a chronically incarcerated left inguinal hernia. The indications, alternatives and possible complications were reviewed. Consent was obtained. DESCRIPTION OF PROCEDURE: With the patient in the supine position and after general anesthesia, the left groin was prepped and draped in sterile fashion using chlorhexidine. A left groin incision was made between the left pubic tubercle and left anterior iliac spine. The incision was deepened into the subcutaneous space. All identified vessels in the subcutaneous space were clamped, divided and ligated. The incision was deepened to the level of the external oblique aponeurosis. It was ultimately incised in the direction of its fibers through the external ring. The underlying ilioinguinal nerve was identified and spared. The undersurface of the split external oblique aponeurosis was swept clean to the level of the pubic tubercle. At the pubic tubercle, a Pullman drain was placed around the cord structures. The cord was skeletonized of its cremasteric fibers. The sac appeared to contain fibrofatty tissue. It was ultimately reduced. With the sac open, there were no additional incarcerated structures noted. The sac was transfixed at its base with 2-0 silk suture material x2 after it had been mobilized to the level of the preperitoneal fat and inferior epigastric vessels. Now directing our attention to the inguinal floor, there was significant attenuation of the transversalis fascia. The transversalis fascia was split throughout its entire length. The preperitoneal tissues were reduced. A Bard plug was placed in the preperitoneal space and fanned out under the deep musculature, where it was tacked in place circumferentially with interrupted 2-0 Prolene sutures. The transversalis fascia was imbricated in two layers over the Bard plug, leaving the plug entirely in the preperitoneal space. This was accomplished with continuous 2-0 Prolene suture, beginning at the pubic tubercle, progressing superiorly and reconstructing the internal ring to permit only fingertip entrance, and returning to the pubic tubercle, where it was tied to itself. An overlay patch was then fashioned about the entire inguinal floor and tacked into place circumferentially with 2-0 Prolene sutures. Where the patch was keyholed superiorly, it was wrapped around the cord and tacked in place, buttressing the internal ring. The cord and ilioinguinal nerve were then returned to their anatomic positions. The overlying external oblique aponeurosis was closed using a continuous 3-0 Vicryl suture. After adequate hemostasis was ensured, the wound was closed in layers. Russell fascia was approximated using interrupted 3-0 chromic suture. The subcuticular layer was approximated with interrupted 3-0 chromic suture. The skin edges were approximated using continuous 4-0 Biosyn suture. Prior to complete closure, 10 mL of 0.5% Marcaine were freely instilled in the wound. Needle, sponge and instrument count correct. Dermabond applied. Dressing applied. The patient tolerated the procedure and the procedure was terminated. Jim [id number] MTDD
--- NOTE | 2018-10-10 16:27 | PATH ---
Surgical Pathology Report Patient Name: MELANIE RUTHERFORD [facility]. Rec. #: [id number] /Age/Gender: 1945 (Age: 73) / M Account: [id number] Location: [facility] AMBULATORY Taken: 10/08/2018 Received: 10/08/2018 Reported: 10/10/2018 Physicians: Mu Mock M.D. Specimen(s) Received HERNIA SAC Clinical History Left inguinal hernia Final Diagnosis HERNIA SAC, LEFT, INGUINAL HERNIA REPAIR: HERNIA SAC. Electronically Signed Parris Mabry M.D. Gross Description Received in formalin labeled "hernia sac," is a 6.0 x 2.1 x 1.5 cm young-guallpa portion of fibromembranous tissue with attached fat, consistent with a hernia sac. Concrete Block Layer sections are submitted in one cassette. /10/09/2018 saudi10/09/2018
== END 2018-10-08 15:15 | disposition home or self-care (01) ==
LOC: FASU 08:51
PROVIDERS: ATTEND Surgery
PROC: 0YU60JZ Supplement Left Inguinal Region with Synthetic Substitute, Open Approach (ICD-10-PCS; principal; 2018-10-08 11:08)
DX: K40.30 Unilateral inguinal hernia, with obstruction, without gangrene, not specified as recurrent (principal)
CPT/HCPCS: 88302-TC; 94760

== ENCOUNTER 2020-01-22 20:45 | Inpatient (IN) | payer OTHER ==
[2020-01-22] MEDS ORDERED: NITROGLYCERIN SUBLINGUAL 1/150 0.4 MG TAB ONE (21:01)
[2020-01-22 21:34] LABS: HEMATOCRIT 45.4 % (35.4-49); HEMOGLOBIN 15.6 GM/dl (11.7-16.9); MCH 27.9 pg (25.7-33.7); MCHC 34.3 g/dl (32.0-35.9); MEAN CELL VOLUME 81.6 fl (80-96); MEAN PLT VOLUME 8.2 fl (7.5-11.1); PLATELET COUNT 189 K/MM3 (134-434); RBC 5.57 M/mm3 (4.00-5.60); RDW 12.5 % (11.9-15.9); WHITE BLOOD COUNT 6.4 K/mm3 (4.0-10.8)
[2020-01-22 21:42] LABS: ACTIVATED PTT 27.9 SECONDS (25.2-36.5)
[2020-01-22 21:45] LABS: ALBUMIN 4.2 g/dl (3.4-5.0); BILIRUBIN,TOTAL 1.1 mg/dl (0.2-1); CALCIUM 8.8 mg/dl (8.5-10); CREATININE 0.8 mg/dl (0.55-1.3); POTASSIUM 4.7 mmol/L (3.5-5.1); TOT PROT 6.1 g/dl (6.4-8.2)
[2020-01-22 21:52] LABS: INR 1.06 (0.82-1.09); PROTHROMBIN TIME (PATIENT) 11.9 SEC (10.2-13.0)
[2020-01-22 22:32] LABS: PLATELET ESTIMATE ADEQUATE
[2020-01-22] MEDS ORDERED: MAG HYDROX/AL HYDROX/SIMETH 30 ML UNIT-DOSE CUP PO ONE (23:26)
[2020-01-22] MEDS ORDERED: MAG HYDROX/AL HYDROX/SIMETH 30 ML UNIT-DOSE CUP ONE (23:28)
[2020-01-22] MEDS ORDERED: ACETAMINOPHEN 500 MG TABLET (FP) PO ONE (23:30)
[2020-01-22] MEDS ORDERED: ACETAMINOPHEN 500 MG TABLET (FP) ONE (23:32)
--- NOTE | 2020-01-22 23:49 | PDOC ---
Documentation entered by Beverly Venegas SCRIBE, acting as scribe for Laverne Alvarado MD. Laverne Alvarado MD: This documentation has been prepared by the candelarioibeTheo Lincy, SCRIBE, under my direction and personally reviewed by me in its entirety. I confirm that the documentation accurately reflects all work, treatment, procedures, and medical decision making performed by me. History of Present Illness - General Chief Complaint: Chest Pain Stated Complaint: CHEST PAIN Time Seen by Provider: 01/22/20 20:47 - History of Present Illness Initial Comments: 01/22/20 22:19 This 74-year-old man with a history of HTN/HLD presents with left-sided chest pain/throat pressure for a few hours. Patient states that at approximately 7 PM, while he was at his computer (after eating "gassy foods") he had onset of above symptoms. No shortness of breath/cough/nausea/diaphoresis. Patient took Pepto-Bismol without change in his symptoms. He states that he is been having increased amount of "gas" in the last few days. No diarrhea or constipation noted. No previous history of chest pain or throat tightness. The patient states that he is physically active, using a stationary bicycle daily. 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 Coronary artery disease risk factors: Positive HTN/HLD. No DM/strong family history/smoking/obesity Medications as noted below Non-smoker/no daily alcohol or other recreational drug use No known allergies History of cerebral artery aneurysm clipping 2018 Past History - Medical History Allergies/Adverse Reactions: Allergies Allergy/AdvReac Type Severity Reaction Status Date / Time No Known Allergies Allergy Verified 10/08/18 09:37 Home Medications: Ambulatory Orders Acetaminophen [Tylenol .Regular Strength -] 650 mg PO Q6H PRN #0 tablet 09/09/16 Ascorbate Calcium [Vitamin C] 500 mg PO DAILY 06/14/17 Bee Pollen 550 mg PO DAILY 06/14/17 Calcium Carb/Mag Ox/Zinc Sulf [Cjfykgr-Loblaszwy-Gmct Tablet] 1 each PO HS 06/14/17 Min17/Nettle/Pumpkin/Saw Palme [Prostate Therapy Softgel] 1 each PO DAILY 06/14/17 Multivitamins [Multivit ([facility] Formulary)] 1 tab PO DAILY 06/14/17 Romayor-3 Fatty Acids/Fish Oil [Fish Oil 1,000 mg Softgel] 1 cap PO DAILY 06/14/17 Turmeric [Curcumin] 1 gm MC DAILY 06/14/17 Ubidecarenone [Coq-10] 100 mg PO DAILY 06/14/17 Iron,Carbonyl [Feosol] 45 mg PO DAILY 10/02/18 Anemia: No (RUNS IN FAMILY/ PT TAKES FERRITIN DAILY) Asthma: No Cancer: No Cardiac Disorders: No CVA: Yes (CEREBRAL ANEURYSM CLIPPING 2013/ANEURYSM CLIPPING September) COPD: No CHF: No Dementia: No Diabetes: No GI Disorders: Yes (DIVERTICULOSIS) Disorders: Yes (MILD BPH) HTN: Yes Hypercholesterolemia: Yes (BORDERLINE/HIGH TRIGYCERIDES) Liver Disease: Yes (FATTY) Seizures: No Thyroid Disease: No - Surgical History Abdominal Surgery: No Appendectomy: No Cardiac Surgery: No Cholecystectomy: No Lung Surgery: No Neurologic Surgery: Yes (CERBRAL ANERUYSM CLIP) Orthopedic Surgery: Yes (S/P RIGHT HAND TENDON REPAIR SURGERY) - Psycho-Social/Smoking History Smoking History: Unknown if ever smoked Have you smoked in the past 12 months: No Information on smoking cessation initiated: No Review of Systems - Review of Systems Able to Perform ROS?: Yes Comments:: 12 point review of systems is negative except for what is noted in the history of present illness *Physical Exam - Vital Signs Last Vital Signs Temp Pulse Resp BP Pulse Ox 97.5 F L 58 L 18 171/106 H 99 01/22/20 20:49 01/22/20 20:49 01/22/20 20:49 01/22/20 20:49 01/22/20 20:49 - Physical Exam GENERAL: Adult male, alert and oriented x3, no acute distress HEAD: Normal with no signs of trauma. EYES: PERRLA, EOMI, sclera anicteric, conjunctiva clear. ENT: Ears normal, nares patent, oropharynx clear without exudates. Moist mucous membranes. NECK: Normal range of motion, supple without lymphadenopathy, JVD, or masses. LUNGS: Breath sounds equal, clear to auscultation bilaterally. No wheezes, and no crackles. HEART:Regular rate and rhythm, normal S1 and S2 without murmur, rub or gallop. ABDOMEN:.Hyperactive bowel sounds No guarding,tenderness or rebound.No masses No distention. EXTREMITIES: Normal range of motion, no edema. No clubbing or cyanosis. No erythema, or tenderness. NEUROLOGICAL: Cranial nerves II through XII grossly intact. Normal speech. No focal neurological deficits. SKIN: Warm, Dry, normal turgor, no rashes or lesions noted. Twelve-lead electrocardiogram is performed: Sinus bradycardia 57 bpm; T wave inversions in III and aVF; Q wave in V2; neither of these are seen in previous EKG dated 09/08/2016; no other changes seen. No acute cardiac arrhythmia seen. Portable chest x-ray performed: Preliminary interpretation-borderline cardiomegaly; no infiltrates, effusions, masses ED Treatment Course - LABORATORY CBC & Chemistry Diagram: 01/22/20 21:15 01/22/20 21:16 Medical Decision Making - Medical Decision Making as noted above, 74-year-old man with HTN/HLD presents with a few hour history of left-sided chest pain that occurred at rest. No previous history of this type of pain; patient also describes mild throat tightness but no shortness of breath or other associated symptoms. Exam, as noted is unremarkable. Today's EKG shows T wave inversions III, aVF not seen in previous EKG on file (2016). No other EKGs available for comparison. Patient had sublingual nitroglycerin on presentation; patient states that he had brief decrease in discomfort in the left chest with rapid recurrence. Laboratory evaluation generally unremarkable with a troponin of 0.03. 01/22/20 23:49 Case discussed with DARYL Simmons of [facility] service. Patient will be admitted as observation status, telemetry under Dr. Julián tejada Discharge - Discharge Information Problems reviewed: Yes Clinical Impression/Diagnosis: Chest pain Qualifiers: Chest pain type: unspecified Qualified Code(s): R07.9 - Chest pain, unspecified Condition: Guarded - Admission Yes - Follow up/Referral Referrals: Meghana Gallego MD [Primary Care Provider] - - Patient Discharge Instructions - Post Discharge Activity
[2020-01-22] MEDS ORDERED: ASPIRIN 81 MG CHEWABLE TABLETS PO ONE (23:55)
[2020-01-23 01:07] VITALS: BMI 29.4
[2020-01-23] MEDS ORDERED: MELATONIN 5 MG TABLETS PO PRN (01:56)
[2020-01-23] MEDS ORDERED: morphine CARPU-JECT 2 MG/1 ML DISP.SYRIN IVPUSH ONE (03:28)
--- NOTE | 2020-01-23 04:42 | HOSP ---
Subjective - Review of Symptoms Events since last encounter: Hospitalist Encounter Notified by the RN, that the patient's Troponin #2 is 3.13. Per the RN the patient is sleeping- asymptomatic Order placed for stat EKG, notify Cardiology Patient will need to be treated for NSTEMI. Spoke with patient via telephone, who reports having L-sided chest wall tenderness PS 1-2/10 non-radiating. He denies SOB, diaphoresis, n/v. Discussed with Dr Nalini Kim Heparin Protocol initiated Patient to be transferred to [facility] Informed patient of plan, he agreed Physical Examination Vital Signs: Vital Signs Temperature 98.1 F 01/23/20 00:42 Pulse Rate 49 L 01/23/20 00:42 Respiratory Rate 18 01/23/20 00:42 Blood Pressure 130/84 01/23/20 00:42 O2 Sat by Pulse Oximetry (%) 98 01/23/20 00:42 Labs: CBC, BMP 01/22/20 21:15 01/22/20 21:16 Hospitalist Encounter Assessment: This is a 74 y/o male with a PMHx of HTN, HLD. Admitted for Telemetry for Chest Pain r/o ACS. Outcome: Per RN EKG reviewd by Dr Alvarado ED attending, who reports improvement from initial tracing Critical Care Total Critical Care Time (in minutes): 60 Critical Care Statement: The care of this patient involved high complexity decision making to prevent further life threatening deterioration of the patient's condition and/or to evaluate & treat vital organ system(s) failure or risk of failure.
[2020-01-23] MEDS ORDERED: HEPARIN NA (PORCINE) 5,000 UNITS/ML 1ML VIAL IVPUSH ONE (06:38)
[2020-01-23] MEDS ORDERED: HEPARIN NA (PORCINE) 5,000 UNITS/ML 1ML VIAL IVPUSH PRN ×2 (06:38)
[2020-01-23] MEDS ORDERED: HEPARIN INFUSION - 25,000 UNITS/500 ML INFUS.BAG IVPB SCH (06:45)
[2020-01-23 08:57] LABS: BASO % 0.4 % (0-2.0); HEMATOCRIT 45.1 % (35.4-49); HEMOGLOBIN 14.6 GM/dL (11.7-16.9); LYMPH % 17.7 % (8-40); MCH 27.6 pg (25.7-33.7); MCHC 32.4 g/dl (32.0-35.9); MEAN CELL VOLUME 85.3 fl (80-96); MEAN PLT VOLUME 8.5 fl (7.5-11.1); MONO % 6.9 % (3.8-10.2); PLATELET COUNT 178 K/MM3 (134-434); RBC 5.29 M/mm3 (4.00-5.60); RDW 13.3 % (11.9-15.9); WHITE BLOOD COUNT 8.6 K/mm3 (4.0-10.0)
[2020-01-23] MEDS ORDERED: ATORVASTATIN CA 40 MG TABLET (FP) PO ONE (09:15)
[2020-01-23 09:24] LABS: ALBUMIN 3.8 g/dl (3.4-5.0); BILIRUBIN,TOTAL 0.5 mg/dL (0.2-1); BLOOD UREA NITROGEN 16.7 mg/dL (7-18); CALCIUM 8.8 mg/dL (8.5-10.1); CREATININE 0.9 mg/dL (0.55-1.3); MAGNESIUM 2.9 mg/dL (1.8-2.4); PHOSPHOROUS 3.5 mg/dL (2.5-4.9); TOT PROT 6.3 g/dl (6.4-8.2)
[2020-01-23] MEDS ORDERED: ASPIRIN 81 MG CHEWABLE TABLETS PO SCH (10:00)
--- NOTE | 2020-01-23 10:33 | HP ---
Admitting History and Physical - Admission History of Present Illness: 74 y/o male with a PMHx of HTN, HLD. Admitted for Telemetry for Chest Pain r/o ACS. - Past Medical History [employer]: Yes: Other (Cerebral artery aneurysm s/p coil embolization) Cardiovascular: Yes: HTN, Hyperlipdemia - Advance Directives Advance Directives: Yes: Health Care Proxy - Smoking History Smoking history: Unknown if ever smoked Have you smoked in the past 12 months: No - Alcohol/Substance Use Hx Alcohol Use: No Home Medications - Allergies Allergies/Adverse Reactions: Allergies Allergy/AdvReac Type Severity Reaction Status Date / Time No Known Allergies Allergy Verified 10/08/18 09:37 - Home Medications Home Medications: Ambulatory Orders Acetaminophen [Tylenol .Regular Strength -] 650 mg PO Q6H PRN #0 tablet 09/09/16 Ascorbate Calcium [Vitamin C] 500 mg PO DAILY 06/14/17 Bee Pollen 550 mg PO DAILY 06/14/17 Calcium Carb/Mag Ox/Zinc Sulf [Umyhijy-Ikbfaubep-Yoem Tablet] 1 each PO HS 06/14/17 Min17/Nettle/Pumpkin/Saw Palme [Prostate Therapy Softgel] 1 each PO DAILY 06/14/17 Multivitamins [Multivit ([facility] Formulary)] 1 tab PO DAILY 06/14/17 [place]-3 Fatty Acids/Fish Oil [Fish Oil 1,000 mg Softgel] 1 cap PO DAILY 06/14/17 Turmeric [Curcumin] 1 gm MC DAILY 06/14/17 Ubidecarenone [Coq-10] 100 mg PO DAILY 06/14/17 Iron,Carbonyl [Feosol] 45 mg PO DAILY 10/02/18 Review of Systems - Review of Systems Cardiovascular: reports: Chest Pain Gastrointestinal: denies: Abdominal Pain Genitourinary: reports: No Symptoms Physical Examination Vital Signs: Vital Signs Temperature 98.0 F 01/23/20 05:30 Pulse Rate 47 L 01/23/20 06:00 Respiratory Rate 18 01/23/20 05:30 Blood Pressure 171/85 H 01/23/20 05:30 O2 Sat by Pulse Oximetry (%) 98 01/23/20 06:00 Cardiovascular: Yes: Regular Rate and Rhythm Respiratory: Yes: Regular, CTA Bilaterally Gastrointestinal: Yes: Normal Bowel Sounds, Soft Edema: No Labs: CBC, BMP 01/23/20 06:00 01/23/20 06:00 Problem List - Problems (1) NSTEMI (non-ST elevated myocardial infarction) Assessment/Plan: ON IV HEPARIN ASA AND PLAVIX SATIN CARDIO CONSULT TRANFER FOR CATH D/W PTS WORKING ON TRANSFER TO [facility] Code(s): I21.4 - NON-ST ELEVATION (NSTEMI) MYOCARDIAL INFARCTION (2) Hypercholesterolemia Assessment/Plan: on statin Code(s): E78.00 - PURE HYPERCHOLESTEROLEMIA, UNSPECIFIED (3) Cerebral aneurysm Assessment/Plan: no complaints at this time Code(s): I67.1 - CEREBRAL ANEURYSM, NONRUPTURED (4) HTN (hypertension) Code(s): I10 - ESSENTIAL (PRIMARY) HYPERTENSION
[2020-01-23] MEDS ORDERED: CLOPIDOGREL BISULFATE 75 MG TABLET (FP) PO SCH (10:45)
--- NOTE | 2020-01-23 11:35 | CON.CARD ---
Consult Consult Specialty:: Cardiology Referred by:: Dr. Gallego Reason for Consultation:: Cardiac evaluation - History of Present Illness Chief Complaint: Chest pain History of Present Illness: Patient is a 74 year old male with underlying history of HTN, hypercholesterolemia and cerebral aneurysm s/p clipping in Sep 2017 at [facility] who presented last night with left sternal chest pain and throat tightness. He denied any radiation of pain and denied being diaphoretic at the time. He was given SL NTG in the ED which improved the pain. Initial troponin was negative, but subsequently it was elevated to 3.13 and then 11.6. Cardiology was consulted. Heparin was started along with Atorvastatin 80mg QD, ASA and Plavix. Currently, he complains of reduced chest pain. Denies shortness of breath or palpitations. He denies paroxysmal nocturnal dyspnea or orthopnea. He denies fever or chills. He denies nausea, vomiting, diarrhea or abdominal pain. He denies headache or lightheadedness. - History Source History Provided By: Patient, Medical Record Limitations to Obtaining History: No Limitations - Past Medical History [employer]: Yes: Other (Cerebral artery aneurysm s/p coil embolization) Cardio/Vascular: Yes: HTN - Past Surgical History Additional Surgical History: Cerebral aneurysm clipping - Alcohol/Substance Use Hx Alcohol Use: No - Smoking History Smoking history: Never smoked Have you smoked in the past 12 months: No Home Medications - Allergies Allergies/Adverse Reactions: Allergies Allergy/AdvReac Type Severity Reaction Status Date / Time No Known Allergies Allergy Verified 10/08/18 09:37 - Home Medications Home Medications: Ambulatory Orders Acetaminophen [Tylenol .Regular Strength -] 650 mg PO Q6H PRN #0 tablet 09/09/16 Ascorbate Calcium [Vitamin C] 500 mg PO DAILY 06/14/17 Bee Pollen 550 mg PO DAILY 06/14/17 Calcium Carb/Mag Ox/Zinc Sulf [Hrkwzkh-Yfsxsjdfl-Xrby Tablet] 1 each PO HS 06/14/17 Min17/Nettle/Pumpkin/Saw Palme [Prostate Therapy Softgel] 1 each PO DAILY 06/14/17 Multivitamins [Multivit ([facility] Formulary)] 1 tab PO DAILY 06/14/17 [place]-3 Fatty Acids/Fish Oil [Fish Oil 1,000 mg Softgel] 1 cap PO DAILY 06/14/17 Turmeric [Curcumin] 1 gm MC DAILY 06/14/17 Ubidecarenone [Coq-10] 100 mg PO DAILY 06/14/17 Iron,Carbonyl [Feosol] 45 mg PO DAILY 10/02/18 Review of Systems - Review of Systems Constitutional: denies: Chills, Fever Cardiovascular: reports: Chest Pain. denies: Palpitations, Shortness of Breath Respiratory: denies: Cough, Hemoptysis, Orthopnea, PND, SOB, SOB on Exertion, Wheezing Gastrointestinal: denies: Abdominal Pain, Constipation, Diarrhea, Melena, Nausea, Rectal Bleeding, Vomiting Musculoskeletal: denies: Back Pain, Joint Pain Neurological: denies: Dizziness, Headache, Seizure, Syncope Vital Signs: Vital Signs Temperature 98.1 F 01/23/20 09:00 Pulse Rate 47 L 01/23/20 09:00 Respiratory Rate 18 01/23/20 09:00 Blood Pressure 147/58 L 01/23/20 09:00 O2 Sat by Pulse Oximetry (%) 98 01/23/20 06:00 Neck: Yes: Supple Respiratory: Yes: CTA Bilaterally Gastrointestinal: Yes: Normal Bowel Sounds, Soft. No: Tenderness Cardiovascular: Yes: Regular Rate and Rhythm JVD: No PMI: Non-Displaced Heart Sounds: Yes: S1, S2 Murmur: No: Systolic Murmur Edema: No - Other Data Labs, Other Data: CBC, BMP 01/23/20 06:00 01/23/20 06:00 INR, PTT INR 1.06 (0.82-1.09) 01/22/20 21:16 Troponin, BNP 01/22/20 01/23/20 01/23/20 21:16 03:00 09:20 Troponin I 0.03 3.13 H* 11.62 H* Laboratory Results - last 24 hr 01/22/20 01/22/20 01/22/20 21:15 21:16 21:16 WBC 6.4 RBC 5.57 Hgb 15.6 Hct 45.4 MCV 81.6 MCH 27.9 MCHC 34.3 RDW 12.5 Plt Count 189 MPV 8.2 Absolute Neuts (auto) 4.1 Neutrophils % No Result Required. Neutrophils % (Manual) 74.0 Lymphocytes % No Result Required. Lymphocytes % (Manual) 24.0 Monocytes % Monocytes % (Manual) 2 L Eosinophils % Basophils % Nucleated RBC % Platelet Estimate Adequate PT with INR 11.9 INR 1.06 PTT (Actin FS) 27.9 Sodium 138 Potassium 4.7 Chloride 106 Carbon Dioxide 25 Anion Gap 7 L BUN 18.0 Creatinine 0.8 Est GFR (CKD-EPI)AfAm 103.44 Est GFR (CKD-EPI)NonAf 89.25 Random Glucose 139 H Calcium 8.8 Phosphorus Magnesium Total Bilirubin 1.1 H AST 36 ALT 21 Alkaline Phosphatase 61 Creatine Kinase 139 Creatine Kinase Index CK-MB (CK-2) 2.7 Troponin I Total Protein 6.1 L Albumin 4.2 Triglycerides Cholesterol Total LDL Cholesterol HDL Cholesterol TSH 01/22/20 01/23/20 01/23/20 21:16 03:00 06:00 WBC 8.6 RBC 5.29 Hgb 14.6 Hct 45.1 MCV 85.3 MCH 27.6 MCHC 32.4 RDW 13.3 Plt Count 178 MPV 8.5 Absolute Neuts (auto) 6.3 Neutrophils % 74.0 Neutrophils % (Manual) Lymphocytes % 17.7 D Lymphocytes % (Manual) Monocytes % 6.9 Monocytes % (Manual) Eosinophils % 1.0 Basophils % 0.4 Nucleated RBC % 0 Platelet Estimate PT with INR INR PTT (Actin FS) Sodium Potassium Chloride Carbon Dioxide Anion Gap BUN Creatinine Est GFR (CKD-EPI)AfAm Est GFR (CKD-EPI)NonAf Random Glucose Calcium Phosphorus Magnesium Total Bilirubin AST ALT Alkaline Phosphatase Creatine Kinase Creatine Kinase Index CK-MB (CK-2) Troponin I 0.03 3.13 H* Total Protein Albumin Triglycerides Cholesterol Total LDL Cholesterol HDL Cholesterol TSH 01/23/20 01/23/20 01/23/20 06:00 09:20 09:20 WBC RBC Hgb Hct MCV MCH MCHC RDW Plt Count MPV Absolute Neuts (auto) Neutrophils % Neutrophils % (Manual) Lymphocytes % Lymphocytes % (Manual) Monocytes % Monocytes % (Manual) Eosinophils % Basophils % Nucleated RBC % Platelet Estimate PT with INR INR PTT (Actin FS) Sodium 141 Potassium 4.0 Chloride 105 Carbon Dioxide 30 Anion Gap 5 L BUN 16.7 Creatinine 0.9 Est GFR (CKD-EPI)AfAm 98.55 Est GFR (CKD-EPI)NonAf 85.03 Random Glucose 100 Calcium 8.8 Phosphorus 3.5 Magnesium 2.9 H Total Bilirubin 0.5 AST 94 H ALT 32 Alkaline Phosphatase 78 Creatine Kinase 924 H Creatine Kinase Index 24.5 H CK-MB (CK-2) 226.5 H Troponin I 11.62 H* Total Protein 6.3 L Albumin 3.8 Triglycerides 526 H Cholesterol 219 H Total LDL Cholesterol 84 HDL Cholesterol 30 L TSH 3.42 D Sinus bradycardia, poor R progression Imaging - Results Chest X-ray: Report Reviewed (Unremarkable) EKG: Report Reviewed Problem List - Problems (1) NSTEMI (non-ST elevated myocardial infarction) Code(s): I21.4 - NON-ST ELEVATION (NSTEMI) MYOCARDIAL INFARCTION (2) CAD (coronary artery disease) Code(s): I25.10 - ATHSCL HEART DISEASE OF [place] CORONARY ARTERY W/O ANG PCTRS (3) Hypercholesterolemia Code(s): E78.00 - PURE HYPERCHOLESTEROLEMIA, UNSPECIFIED (4) Chest pain Code(s): R07.9 - CHEST PAIN, UNSPECIFIED Qualifiers: Chest pain type: unspecified Qualified Code(s): R07.9 - Chest pain, unspecified (5) Cerebral aneurysm Code(s): I67.1 - CEREBRAL ANEURYSM, NONRUPTURED (6) HTN (hypertension) Code(s): I10 - ESSENTIAL (PRIMARY) HYPERTENSION Assessment/Plan 1. Clinical presentation c/w CAD NSTEMI with elevated troponin 2. HTN 3. Hypercholesterolemia 4. History of cerebral aneurysm s/p clipping PLAN: 1. Heparin protocol 2. NTP 3. ASA and Plavix (currently started on Plavix) 4. Atorvastatin 80 mg QD 5. Consider adding ARB 6. Trend troponin 7. Family already reached out to [facility] where they want patient to be transferred. Spoke with Dr. Indio Dasilva (Cardiology) who will be the accepting MD. Further therapy is to be continued there. Cardiac catheterization/coronary angiography should be planned. Further plans are to be followed Spoke with patient's , Genny. Julio Gayle MD
[2020-01-23] MEDS ORDERED: NITROGLYCERIN 2% OINTMENT - 1GM PACKET TD SCH (12:00)
[2020-01-23] MEDS ORDERED: VALSARTAN 40 MG TABLET (FP) PO SCH (13:30)
[2020-01-23 14:15] VITALS: BP 150/89; PULSE 56; TEMP 97.8
[2020-01-23] MEDS ORDERED: ATORVASTATIN CA 40 MG TABLET (FP) PO SCH ×2 (22:00)
--- NOTE | 2020-01-24 14:23 | EKG ---
Test Reason : Blood Pressure : / mmHG Vent. Rate : 045 BPM Atrial Rate : 045 BPM P-R Int : 166 ms QRS Dur : 084 ms QT Int : 506 ms P-R-T Axes : 020 019 062 degrees QTc Int : 437 ms SINUS BRADYCARDIA OTHERWISE NORMAL ECG WHEN COMPARED WITH ECG OF 22-JAN-2020 21:00, T WAVE VARIATION Confirmed by GODFREY RICHARDS MD ([id number]) on 01/24/2020 2:22:50 PM Referred By: JAVIER KAMINSKI Confirmed By:GODFREY RICHARDS MD
--- NOTE | 2020-01-24 14:23 | EKG ---
Test Reason : Blood Pressure : / mmHG Vent. Rate : 057 BPM Atrial Rate : 057 BPM P-R Int : 150 ms QRS Dur : 086 ms QT Int : 446 ms P-R-T Axes : 005 000 -07 degrees QTc Int : 434 ms SINUS BRADYCARDIA SEPTAL INFARCT , AGE UNDETERMINED ABNORMAL ECG WHEN COMPARED WITH ECG OF 08-SEP-2016 01:00, SEPTAL INFARCT IS NOW PRESENT Confirmed by GODFREY RICHARDS MD ([id number]) on 01/24/2020 2:23:12 PM Referred By: LAZARO Confirmed By:GODFREY RICHARDS MD
--- NOTE | 2020-01-25 10:28 | EKG ---
Test Reason : Blood Pressure : / mmHG Vent. Rate : 054 BPM Atrial Rate : 054 BPM P-R Int : 164 ms QRS Dur : 090 ms QT Int : 430 ms P-R-T Axes : 024 033 083 degrees QTc Int : 407 ms SINUS BRADYCARDIA ANTEROSEPTAL INFARCT , AGE UNDETERMINED Nonspecific T changes ABNORMAL ECG WHEN COMPARED WITH ECG OF 23-JAN-2020 05:16, ANTEROSEPTAL INFARCT IS NOW PRESENT NONSPECIFIC T WAVE ABNORMALITY, WORSE IN LATERAL LEADS Confirmed by Norma Voss ([id number]) on 01/25/2020 10:28:24 AM Referred By: MD DEVLIN Confirmed By:Norma Voss
== END 2020-01-23 14:00 | disposition short-term general hospital (02) | DRG 282 ==
LOC: FER 20:45 → FM/S 23:50 → UNDOADMOB 01-23 00:16 → INTOOBSV 01-23 00:16 → OBSVTOIN 01-23 13:30
PROVIDERS: ADMIT Family Medicine; ATTEND Family Medicine
DX: I21.4 Non-ST elevation (NSTEMI) myocardial infarction (principal); I10 Essential (primary) hypertension; E78.5 Hyperlipidemia, unspecified; K57.90 Diverticulosis of intestine, part unspecified, without perforation or abscess without bleeding; K76.0 Fatty (change of) liver, not elsewhere classified; I25.10 Atherosclerotic heart disease of native coronary artery without angina pectoris
CPT/HCPCS: 36415; 71045-TC-FY; 80053; 80061; 82550; 82553; 83735; 84100; 84443; 84484; 85025; 85610; 85730; 93005; 93010; 99285-25; G0378; J1644; U0003

== ENCOUNTER 2021-07-12 15:30 | Inpatient (IN) | payer OTHER ==
[2021-07-12] MEDS ORDERED: DEXAMETHASONE SOD PHOSPHATE 4 MG/1 ML VIAL IVPUSH ONE (18:08)
[2021-07-12] MEDS ORDERED: ALBUTEROL SO4 2.5/IPRATROPIUM 0.5 INH SOL 3 ML VIAL.NEB. NEB ONE ×3 (18:08→18:39)
[2021-07-12] MEDS ORDERED: DEXAMETHASONE SOD PHOSPHATE 4 MG/1 ML VIAL ONE (18:36)
[2021-07-12 18:45] LABS: VENOUS BASE EXCESS 1.5 mmol/L (-2-2); VENOUS O2 SATURATION 40.4 % (70-80); VENOUS PCO2 42.4 mmHg (38-52); VENOUS PH 7.412 (7.310-7.410)
[2021-07-12 18:50] LABS: BASO % 0.6 % (0-2.0); EOS % 0.1 % (0-4.5); HEMATOCRIT 42.5 % (35.4-49); HEMOGLOBIN 14.3 GM/dL (11.7-16.9); LYMPH % 8.4 % (8-40); MCH 27.8 pg (25.7-33.7); MCHC 33.5 g/dl (32.0-35.9); MEAN CELL VOLUME 82.9 fl (80-96); MEAN PLT VOLUME 7.1 fl (7.5-11.1); MONO % 8.1 % (3.8-10.2); NEUT % 82.8 % (42.8-82.8); PLATELET COUNT 231 10^3/uL (134-434); RBC 5.13 M/mm3 (4.00-5.60); RDW 13.9 % (11.9-15.9); WHITE BLOOD COUNT 5.9 K/mm3 (4.0-10.0)
[2021-07-12 19:05] LABS: CHLORIDE 103 mmol/L (98-107); SODIUM 138 mmol/L (136-145)
[2021-07-12 19:08] LABS: ALBUMIN 2.9 g/dl (3.4-5.0); ANION GAP 7 MMOL/L (8-16); BLOOD UREA NITROGEN 25.2 mg/dL (7-18); CALCIUM 8.2 mg/dL (8.5-10.1); CO2 29 mmol/L (21-32); GLUCOSE,RANDOM 101 mg/dL (74-106)
[2021-07-12 19:11] LABS: SGOT/AST 44 U/L (15-37); SGPT/ALT 35 U/L (13-61)
[2021-07-12 19:13] LABS: BILIRUBIN,TOTAL 0.7 mg/dL (0.2-1); TOT PROT 5.9 g/dl (6.4-8.2)
[2021-07-12 19:14] LABS: ALK PHOS 54 U/L (45-117)
[2021-07-12 20:45] LABS: LDH 410 U/L (87-246)
[2021-07-12] MEDS ORDERED: ALBUTEROL SO4 HFA INHALER IH PRN (21:27)
[2021-07-12 22:27] VITALS: BMI 25.0
[2021-07-12] MEDS: MELATONIN 5 MG TABLETS PO PRN (22:32)
[2021-07-13] MEDS: guaiFENesin 200 MG/10 ML 10 ML UNIT-DOSE CUPS PO PRN ×2 (04:09→20:30)
[2021-07-13 09:37] LABS: BASO % 0.2 % (0-2.0); HEMATOCRIT 42.6 % (35.4-49); HEMOGLOBIN 14.4 GM/dL (11.7-16.9); LYMPH % 12.2 % (8-40); MCH 27.8 pg (25.7-33.7); MCHC 33.8 g/dl (32.0-35.9); MEAN CELL VOLUME 82.3 fl (80-96); MEAN PLT VOLUME 7.4 fl (7.5-11.1); MONO % 4.9 % (3.8-10.2); NEUT % 82.7 % (42.8-82.8); PLATELET COUNT 240 10^3/uL (134-434); RBC 5.17 M/mm3 (4.00-5.60); RDW 13.5 % (11.9-15.9); WHITE BLOOD COUNT 4.1 K/mm3 (4.0-10.0)
[2021-07-13] MEDS ORDERED: PT OWN MED DRAWER 7, Y5N ONE (10:08)
[2021-07-13] MEDS: ZINC SULFATE 220 MG CAPSULE (FP) PO SCH (10:11)
[2021-07-13] MEDS: ASCORBIC ACID 500 MG TABLET (FP) PO SCH (10:11)
[2021-07-13] MEDS: CHOLECALCIFEROL (VIT D3) 1,000 UNIT (25 MCG) TABLET PO SCH (10:11)
[2021-07-13] MEDS: DEXAMETHASONE SOD PHOSPHATE 4 MG/1 ML VIAL IVPUSH SCH (10:11)
[2021-07-13] MEDS: ENOXAPARIN NA (PORCINE) 40 MG/0.4 ML DISP.SYRIN SQ SCH (10:13)
[2021-07-13 10:14] LABS: BLOOD UREA NITROGEN 22.6 mg/dL (7-18); CALCIUM 8.7 mg/dL (8.5-10.1)
[2021-07-13 10:16] LABS: ALBUMIN 2.8 g/dl (3.4-5.0)
[2021-07-13 10:19] LABS: BILIRUBIN,TOTAL 0.8 mg/dL (0.2-1); CREATININE 0.8 mg/dL (0.55-1.3)
[2021-07-13] MEDS: ALBUTEROL SO4 HFA INHALER IH SCH ×2 (15:59→20:30)
[2021-07-13] MEDS: MELATONIN 5 MG TABLETS PO PRN (21:09)
[2021-07-13] MEDS: ATORVASTATIN CA 40 MG TABLET (FP) PO SCH (21:09)
[2021-07-13] MEDS: BUDESONIDE/FORMETEROL FUMARATE 160/4.5 mcg INHALER IH SCH (21:10)
[2021-07-14] MEDS ORDERED: diphenhydrAMINE HCL 25 MG CAPSULE (FP) PO ONE (00:07)
[2021-07-14] MEDS: ALBUTEROL SO4 HFA INHALER IH SCH ×4 (08:58→21:10)
[2021-07-14] MEDS ORDERED: PT OWN MED DRAWER 7, Y5N ONE ×2 (09:51→10:49)
[2021-07-14] MEDS: ASCORBIC ACID 500 MG TABLET (FP) PO SCH (10:04)
[2021-07-14] MEDS: DEXAMETHASONE SOD PHOSPHATE 4 MG/1 ML VIAL IVPUSH SCH (10:04)
[2021-07-14] MEDS: ZINC SULFATE 220 MG CAPSULE (FP) PO SCH (10:04)
[2021-07-14] MEDS: CHOLECALCIFEROL (VIT D3) 1,000 UNIT (25 MCG) TABLET PO SCH (10:05)
[2021-07-14] MEDS: metoPROLOL SUCCINATE 25 MG TAB.SR.24H (FP) PO SCH (10:05)
[2021-07-14] MEDS: BUDESONIDE/FORMETEROL FUMARATE 160/4.5 mcg INHALER IH SCH ×2 (10:05→21:10)
[2021-07-14] MEDS: ENOXAPARIN NA (PORCINE) 40 MG/0.4 ML DISP.SYRIN SQ SCH (10:05)
[2021-07-14] MEDS: ACETAMINOPHEN 325 MG TABLET (FP) PO PRN (12:32)
[2021-07-14] MEDS: ATORVASTATIN CA 40 MG TABLET (FP) PO SCH (21:10)
[2021-07-14] MEDS: MELATONIN 5 MG TABLETS PO PRN (21:10)
[2021-07-14] MEDS: guaiFENesin 200 MG/10 ML 10 ML UNIT-DOSE CUPS PO PRN (21:13)
[2021-07-15 08:36] LABS: HEMATOCRIT 43.3 % (35.4-49); HEMOGLOBIN 14.3 GM/dL (11.7-16.9); MCH 27.8 pg (25.7-33.7); MCHC 33.1 g/dl (32.0-35.9); MEAN CELL VOLUME 84.1 fl (80-96); MEAN PLT VOLUME 7.7 fl (7.5-11.1); PLATELET COUNT 331 10^3/uL (134-434); RBC 5.15 M/mm3 (4.00-5.60); RDW 13.3 % (11.9-15.9); WHITE BLOOD COUNT 9.1 K/mm3 (4.0-10.0)
[2021-07-15] MEDS: ENOXAPARIN NA (PORCINE) 40 MG/0.4 ML DISP.SYRIN SQ SCH (08:59)
[2021-07-15] MEDS: ASCORBIC ACID 500 MG TABLET (FP) PO SCH (08:59)
[2021-07-15] MEDS: ALBUTEROL SO4 HFA INHALER IH SCH ×4 (08:59→21:13)
[2021-07-15] MEDS: ZINC SULFATE 220 MG CAPSULE (FP) PO SCH (08:59)
[2021-07-15] MEDS: CHOLECALCIFEROL (VIT D3) 1,000 UNIT (25 MCG) TABLET PO SCH (08:59)
[2021-07-15] MEDS: DEXAMETHASONE SOD PHOSPHATE 4 MG/1 ML VIAL IVPUSH SCH (08:59)
[2021-07-15] MEDS: metoPROLOL SUCCINATE 25 MG TAB.SR.24H (FP) PO SCH (08:59)
[2021-07-15 09:00] LABS: BLOOD UREA NITROGEN 23.3 mg/dL (7-18)
[2021-07-15 09:01] LABS: CALCIUM 8.9 mg/dL (8.5-10.1)
[2021-07-15 09:03] LABS: CREATININE 0.7 mg/dL (0.55-1.3)
[2021-07-15] MEDS: BUDESONIDE/FORMETEROL FUMARATE 160/4.5 mcg INHALER IH SCH ×2 (10:42→22:14)
[2021-07-15] MEDS: guaiFENesin 200 MG/10 ML 10 ML UNIT-DOSE CUPS PO PRN ×2 (14:32→22:13)
[2021-07-15] MEDS: MELATONIN 5 MG TABLETS PO PRN (22:13)
[2021-07-15] MEDS: ATORVASTATIN CA 40 MG TABLET (FP) PO SCH (22:13)
[2021-07-16] MEDS: ALBUTEROL SO4 HFA INHALER IH SCH ×4 (08:45→20:00)
[2021-07-16] MEDS: guaiFENesin 200 MG/10 ML 10 ML UNIT-DOSE CUPS PO PRN ×2 (11:06→17:49)
[2021-07-16] MEDS: DEXAMETHASONE SOD PHOSPHATE 4 MG/1 ML VIAL IVPUSH SCH (11:07)
[2021-07-16] MEDS: ASCORBIC ACID 500 MG TABLET (FP) PO SCH (11:09)
[2021-07-16] MEDS: ENOXAPARIN NA (PORCINE) 40 MG/0.4 ML DISP.SYRIN SQ SCH (11:09)
[2021-07-16] MEDS: metoPROLOL SUCCINATE 25 MG TAB.SR.24H (FP) PO SCH (11:09)
[2021-07-16] MEDS: CHOLECALCIFEROL (VIT D3) 1,000 UNIT (25 MCG) TABLET PO SCH (11:09)
[2021-07-16] MEDS: BUDESONIDE/FORMETEROL FUMARATE 160/4.5 mcg INHALER IH SCH ×2 (11:10→21:34)
[2021-07-16] MEDS: ZINC SULFATE 220 MG CAPSULE (FP) PO SCH (11:10)
[2021-07-16] MEDS: MELATONIN 5 MG TABLETS PO PRN (21:33)
[2021-07-16] MEDS: ATORVASTATIN CA 40 MG TABLET (FP) PO SCH (21:33)
[2021-07-16] MEDS: ACETAMINOPHEN 325 MG TABLET (FP) PO PRN (21:34)
[2021-07-17 09:13] LABS: HEMATOCRIT 41.3 % (35.4-49); HEMOGLOBIN 13.9 GM/dL (11.7-16.9); MCHC 33.6 g/dl (32.0-35.9); MEAN CELL VOLUME 83.2 fl (80-96); MEAN PLT VOLUME 7.4 fl (7.5-11.1); PLATELET COUNT 340 10^3/uL (134-434); RBC 4.96 M/mm3 (4.00-5.60); RDW 13.4 % (11.9-15.9); WHITE BLOOD COUNT 8.2 K/mm3 (4.0-10.0)
[2021-07-17 09:51] LABS: ALBUMIN 2.4 g/dl (3.4-5.0); BLOOD UREA NITROGEN 24.6 mg/dL (7-18)
[2021-07-17 09:53] LABS: CALCIUM 8.4 mg/dL (8.5-10.1)
[2021-07-17 09:54] LABS: MAGNESIUM 2.6 mg/dL (1.8-2.4)
[2021-07-17 09:56] LABS: CREATININE 0.7 mg/dL (0.55-1.3); PHOSPHOROUS 3.6 mg/dL (2.5-4.9)
[2021-07-17 09:57] LABS: BILIRUBIN,TOTAL 0.5 mg/dL (0.2-1); TOT PROT 5.4 g/dl (6.4-8.2)
[2021-07-17] MEDS: ASCORBIC ACID 500 MG TABLET (FP) PO SCH (10:39)
[2021-07-17] MEDS: DEXAMETHASONE SOD PHOSPHATE 4 MG/1 ML VIAL IVPUSH SCH (10:39)
[2021-07-17] MEDS: metoPROLOL SUCCINATE 25 MG TAB.SR.24H (FP) PO SCH (10:39)
[2021-07-17] MEDS: ZINC SULFATE 220 MG CAPSULE (FP) PO SCH (10:39)
[2021-07-17] MEDS: CHOLECALCIFEROL (VIT D3) 1,000 UNIT (25 MCG) TABLET PO SCH (10:39)
[2021-07-17] MEDS: ENOXAPARIN NA (PORCINE) 40 MG/0.4 ML DISP.SYRIN SQ SCH (10:39)
[2021-07-17] MEDS: BUDESONIDE/FORMETEROL FUMARATE 160/4.5 mcg INHALER IH SCH ×2 (10:40→21:09)
[2021-07-17] MEDS: ALBUTEROL SO4 HFA INHALER IH SCH ×4 (10:40→21:09)
[2021-07-17 10:43] LABS: ERYTHROCYTE SEDIMENTATION RATE 59 mm/hr (0-20)
[2021-07-17] MEDS: ATORVASTATIN CA 40 MG TABLET (FP) PO SCH (21:09)
[2021-07-17] MEDS: MELATONIN 5 MG TABLETS PO PRN (21:09)
[2021-07-17] MEDS: guaiFENesin 200 MG/10 ML 10 ML UNIT-DOSE CUPS PO PRN (21:10)
[2021-07-18] MEDS ORDERED: MAG HYDROX/AL HYDROX/SIMETH 30 ML UNIT-DOSE CUP PO ONE (01:05)
[2021-07-18] MEDS ORDERED: FAMOTIDINE 10 MG TABLET PO ONE (03:44)
[2021-07-18 09:10] LABS: HEMATOCRIT 41.7 % (35.4-49); HEMOGLOBIN 13.8 GM/dL (11.7-16.9); MCH 27.7 pg (25.7-33.7); MCHC 33.2 g/dl (32.0-35.9); MEAN CELL VOLUME 83.5 fl (80-96); MEAN PLT VOLUME 7.4 fl (7.5-11.1); PLATELET COUNT 383 10^3/uL (134-434); RBC 4.99 M/mm3 (4.00-5.60); RDW 13.3 % (11.9-15.9); WHITE BLOOD COUNT 12.3 K/mm3 (4.0-10.0)
[2021-07-18 09:29] LABS: ALBUMIN 2.6 g/dl (3.4-5.0); BLOOD UREA NITROGEN 24.4 mg/dL (7-18)
[2021-07-18 09:30] LABS: MAGNESIUM 2.7 mg/dL (1.8-2.4)
[2021-07-18 09:32] LABS: PHOSPHOROUS 3.8 mg/dL (2.5-4.9)
[2021-07-18 09:33] LABS: CREATININE 0.7 mg/dL (0.55-1.3)
[2021-07-18 09:34] LABS: BILIRUBIN,TOTAL 0.6 mg/dL (0.2-1); TOT PROT 5.6 g/dl (6.4-8.2)
[2021-07-18] MEDS: ASCORBIC ACID 500 MG TABLET (FP) PO SCH (11:32)
[2021-07-18] MEDS: CHOLECALCIFEROL (VIT D3) 1,000 UNIT (25 MCG) TABLET PO SCH (11:32)
[2021-07-18] MEDS: metoPROLOL SUCCINATE 25 MG TAB.SR.24H (FP) PO SCH (11:32)
[2021-07-18] MEDS: BUDESONIDE/FORMETEROL FUMARATE 160/4.5 mcg INHALER IH SCH (11:32)
[2021-07-18] MEDS: ALBUTEROL SO4 HFA INHALER IH SCH ×2 (11:32→15:32)
[2021-07-18] MEDS: DEXAMETHASONE SOD PHOSPHATE 4 MG/1 ML VIAL IVPUSH SCH (11:32)
[2021-07-18] MEDS: ZINC SULFATE 220 MG CAPSULE (FP) PO SCH (11:32)
[2021-07-18] MEDS: ENOXAPARIN NA (PORCINE) 40 MG/0.4 ML DISP.SYRIN SQ SCH (15:32)
[2021-07-18 16:22] VITALS: BP 138/79; PULSE 72; TEMP 97.6
== END 2021-07-18 17:36 | disposition home or self-care (01) | DRG 177 ==
LOC: JER 15:30 → JERBED 20:00 → J8W 21:42
PROVIDERS: ADMIT Internal Medicine; ATTEND Internal Medicine
DX: U07.1 COVID-19 (principal); J96.01 Acute respiratory failure with hypoxia; J12.82 Pneumonia due to coronavirus disease 2019; J98.11 Atelectasis; I10 Essential (primary) hypertension; E78.5 Hyperlipidemia, unspecified; I25.10 Atherosclerotic heart disease of native coronary artery without angina pectoris; N40.0 Benign prostatic hyperplasia without lower urinary tract symptoms; Z98.61 Coronary angioplasty status; K76.0 Fatty (change of) liver, not elsewhere classified
CPT/HCPCS: 36415; 71045-TC-FY; 80048; 80053; 82550; 82553; 82728; 82803; 83605; 83615; 83735; 84100; 84484; 85025; 85027; 85379; 85651; 86140; 87804; 87807; 93005; 93010; 94010; 94761; 97116-GP; 97161-GP; 99285-25; C9803; U0003; U0005

== ENCOUNTER 2021-07-20 06:50 | Inpatient (IN) | payer OTHER ==
[2021-07-20 07:01] VITALS: BMI 27.4
[2021-07-20 08:39] LABS: HEMATOCRIT 46.7 % (35.4-49); HEMOGLOBIN 15.3 GM/dL (11.7-16.9); MCH 27.5 pg (25.7-33.7); MCHC 32.7 g/dl (32.0-35.9); MEAN CELL VOLUME 84.2 fl (80-96); MEAN PLT VOLUME 7.2 fl (7.5-11.1); PLATELET COUNT 531 10^3/uL (134-434); RBC 5.55 M/mm3 (4.00-5.60); RDW 13.3 % (11.9-15.9); WHITE BLOOD COUNT 17.1 K/mm3 (4.0-10.0)
[2021-07-20 08:50] LABS: CALCIUM 9.2 mg/dL (8.5-10.1)
[2021-07-20 08:51] LABS: BLOOD UREA NITROGEN 24.2 mg/dL (7-18); MAGNESIUM 2.8 mg/dL (1.8-2.4)
[2021-07-20 08:54] LABS: CREATININE 0.7 mg/dL (0.55-1.3)
[2021-07-20 08:56] LABS: BILIRUBIN,TOTAL 0.7 mg/dL (0.2-1); TOT PROT 6.4 g/dl (6.4-8.2)
[2021-07-20] MEDS ORDERED: ASPIRIN 81 MG CHEWABLE TABLETS PO ONE (09:02)
[2021-07-20] MEDS ORDERED: ASPIRIN 81 MG CHEWABLE TABLETS ONE (09:10)
[2021-07-20 09:41] LABS: N-TERMINAL BNP 880.2 pg/ml (5-125)
[2021-07-20 10:03] LABS: ANISOCYTOSIS 0; HELMET CELLS 0; HOWELL-JOLLY BODIES 0; MACROCYTOSIS 0; OVALOCYTE 0; PLATELET ESTIMATE INCREASED; ROULEAU 0; SICKELED CELLS 0; TARGET CELLS 0; TEAR DROP CELLS 0; TOXIC GRANULATION 0
[2021-07-20 11:22] LABS: N-TERMINAL BNP 918.2 pg/ml (5-125)
[2021-07-20] MEDS ORDERED: ENOXAPARIN NA (PORCINE) 40 MG/0.4 ML DISP.SYRIN SQ ONE (11:22)
[2021-07-20] MEDS ORDERED: ENOXAPARIN NA (PORCINE) 80 MG/0.8 ML DISP.SYRIN SQ ONE (11:28)
[2021-07-20] MEDS ORDERED: ACETAMINOPHEN 1000 MG/100 ML BAG IVPB PRN (13:33)
[2021-07-20] MEDS: ALBUTEROL SO4 HFA INHALER IH SCH ×2 (18:14→21:16)
[2021-07-20] MEDS: ATORVASTATIN CA 40 MG TABLET (FP) PO SCH (21:53)
[2021-07-20] MEDS: BUDESONIDE/FORMETEROL FUMARATE 160/4.5 mcg INHALER IH SCH (21:54)
[2021-07-20] MEDS: ENOXAPARIN NA (PORCINE) 80 MG/0.8 ML DISP.SYRIN SQ SCH (21:54)
[2021-07-21] MEDS: MELATONIN 5 MG TABLETS PO PRN ×2 (00:30→21:20)
[2021-07-21 07:59] LABS: HEMATOCRIT 44.6 % (35.4-49); HEMOGLOBIN 14.9 GM/dL (11.7-16.9); MCH 27.8 pg (25.7-33.7); MCHC 33.4 g/dl (32.0-35.9); MEAN CELL VOLUME 83.2 fl (80-96); MEAN PLT VOLUME 7.3 fl (7.5-11.1); PLATELET COUNT 451 10^3/uL (134-434); RBC 5.36 M/mm3 (4.00-5.60); RDW 13.3 % (11.9-15.9)
[2021-07-21] MEDS: ALBUTEROL SO4 HFA INHALER IH SCH ×4 (08:30→21:03)
[2021-07-21 09:47] LABS: ANISOCYTOSIS 2+; MACROCYTOSIS 0; OVALOCYTE 1+; PLATELET ESTIMATE NORMAL; TEAR DROP CELLS 1+
[2021-07-21] MEDS ORDERED: PT OWN MED DRAWER 7, Y5N ONE ×2 (09:48→09:54)
[2021-07-21] MEDS: ASPIRIN 81 MG CHEWABLE TABLETS PO SCH (09:52)
[2021-07-21] MEDS: ENOXAPARIN NA (PORCINE) 80 MG/0.8 ML DISP.SYRIN SQ SCH ×2 (09:52→21:20)
[2021-07-21] MEDS: metoPROLOL SUCCINATE 25 MG TAB.SR.24H (FP) PO SCH (09:52)
[2021-07-21] MEDS: PANTOPRAZOLE SODIUM 40 MG VIAL IVPUSH SCH (09:52)
[2021-07-21] MEDS ORDERED: metoPROLOL SUCCINATE 25 MG TAB.SR.24H (FP) PO SCH ×2 (10:00→14:39)
[2021-07-21] MEDS: BUDESONIDE/FORMETEROL FUMARATE 160/4.5 mcg INHALER IH SCH ×2 (10:03→21:20)
[2021-07-21 10:26] LABS: CHLORIDE 102 mmol/L (98-107); SODIUM 139 mmol/L (136-145)
[2021-07-21 10:29] LABS: ANION GAP 16 MMOL/L (8-16); BLOOD UREA NITROGEN 21.5 mg/dL (7-18); CO2 21 mmol/L (21-32); MAGNESIUM 2.5 mg/dL (1.8-2.4)
[2021-07-21 10:31] LABS: GLUCOSE,RANDOM 128 mg/dL (74-106)
[2021-07-21 10:32] LABS: CREATININE 0.8 mg/dL (0.55-1.3); SGOT/AST 74 U/L (15-37); SGPT/ALT 69 U/L (13-61)
[2021-07-21 10:33] LABS: CHOLESTEROL 184 mg/dL (50-200); TRIGLYCERIDES 641 mg/dL (0-150)
[2021-07-21 10:35] LABS: ALK PHOS 68 U/L (45-117); BILIRUBIN,TOTAL 0.7 mg/dL (0.2-1); HDL CHOLESTEROL 34 mg/dL (40-60); LDL CHOLESTEROL (ONLY SJRH) 81 mg/dL (5-100)
[2021-07-21] MEDS: DEXAMETHASONE 2 MG TABLET PO SCH (10:37)
[2021-07-21 10:58] LABS: ALBUMIN 2.7 g/dl (3.4-5.0)
[2021-07-21] MEDS: ATORVASTATIN CA 40 MG TABLET (FP) PO SCH (21:20)
[2021-07-22] MEDS ORDERED: ACETAMINOPHEN 325 MG TABLET (FP) PO ONE (01:43)
[2021-07-22] MEDS: ALBUTEROL SO4 HFA INHALER IH SCH ×4 (08:10→21:40)
[2021-07-22] MEDS ORDERED: PT OWN MED DRAWER 7, Y5N ONE (08:54)
[2021-07-22] MEDS: ASPIRIN 81 MG CHEWABLE TABLETS PO SCH (09:19)
[2021-07-22] MEDS: ENOXAPARIN NA (PORCINE) 80 MG/0.8 ML DISP.SYRIN SQ SCH ×2 (09:20→21:35)
[2021-07-22] MEDS: PANTOPRAZOLE SODIUM 40 MG VIAL IVPUSH SCH (09:20)
[2021-07-22] MEDS: DEXAMETHASONE 2 MG TABLET PO SCH (09:21)
[2021-07-22] MEDS: metoPROLOL SUCCINATE 25 MG TAB.SR.24H (FP) PO SCH (09:22)
[2021-07-22] MEDS: BUDESONIDE/FORMETEROL FUMARATE 160/4.5 mcg INHALER IH SCH ×2 (09:22→21:40)
[2021-07-22] MEDS: CLOPIDOGREL BISULFATE 75 MG TABLET (FP) PO SCH (11:49)
[2021-07-22] MEDS ORDERED: SODIUM CHLORIDE NASAL SPRAY 44 ML BOTTLE NS PRN (20:27)
[2021-07-22] MEDS: ATORVASTATIN CA 40 MG TABLET (FP) PO SCH (21:35)
[2021-07-22] MEDS: ZOLPIDEM TARTRATE 5 MG TABLET PO PRN (21:35)
[2021-07-23 07:32] LABS: HEMATOCRIT 42.8 % (35.4-49); MCH 27.4 pg (25.7-33.7); MCHC 32.6 g/dl (32.0-35.9); MEAN PLT VOLUME 7.5 fl (7.5-11.1); PLATELET COUNT 359 10^3/uL (134-434); RBC 5.09 M/mm3 (4.00-5.60); RDW 13.1 % (11.9-15.9); WHITE BLOOD COUNT 20.8 K/mm3 (4.0-10.0)
[2021-07-23 07:45] LABS: CALCIUM 8.8 mg/dL (8.5-10.1)
[2021-07-23 07:46] LABS: ALBUMIN 2.6 g/dl (3.4-5.0); BLOOD UREA NITROGEN 26.9 mg/dL (7-18); MAGNESIUM 2.6 mg/dL (1.8-2.4)
[2021-07-23 07:49] LABS: CREATININE 0.9 mg/dL (0.55-1.3); PHOSPHOROUS 3.1 mg/dL (2.5-4.9)
[2021-07-23 07:50] LABS: BILIRUBIN,TOTAL 0.5 mg/dL (0.2-1); TOT PROT 5.6 g/dl (6.4-8.2)
[2021-07-23] MEDS: ALBUTEROL SO4 HFA INHALER IH SCH ×3 (08:34→21:43)
[2021-07-23 08:51] LABS: ERYTHROCYTE SEDIMENTATION RATE 23 mm/hr (0-20)
[2021-07-23 10:20] LABS: ANISOCYTOSIS 0; MACROCYTOSIS 0; PLATELET ESTIMATE NORMAL
[2021-07-23] MEDS: metoPROLOL SUCCINATE 25 MG TAB.SR.24H (FP) PO SCH (10:34)
[2021-07-23] MEDS: ENOXAPARIN NA (PORCINE) 80 MG/0.8 ML DISP.SYRIN SQ SCH ×2 (10:34→21:43)
[2021-07-23] MEDS: PANTOPRAZOLE SODIUM 40 MG VIAL IVPUSH SCH (10:35)
[2021-07-23] MEDS: BUDESONIDE/FORMETEROL FUMARATE 160/4.5 mcg INHALER IH SCH ×2 (10:35→21:45)
[2021-07-23] MEDS: ASPIRIN 81 MG CHEWABLE TABLETS PO SCH (10:35)
[2021-07-23] MEDS: CLOPIDOGREL BISULFATE 75 MG TABLET (FP) PO SCH (10:35)
[2021-07-23] MEDS ORDERED: PT OWN MED DRAWER 7, Y5N ONE (10:37)
[2021-07-23] MEDS: DEXAMETHASONE 2 MG TABLET PO SCH (10:37)
[2021-07-23] MEDS ORDERED: metoPROLOL SUCCINATE 25 MG TAB.SR.24H (FP) PO ONE (20:23)
[2021-07-23] MEDS: ATORVASTATIN CA 40 MG TABLET (FP) PO SCH (21:33)
[2021-07-23] MEDS: ZOLPIDEM TARTRATE 5 MG TABLET PO PRN (21:33)
[2021-07-24] MEDS ORDERED: PT OWN MED DRAWER 7, Y5N ONE (08:45)
[2021-07-24 09:06] LABS: ALBUMIN 2.4 g/dl (3.4-5.0); BLOOD UREA NITROGEN 32.1 mg/dL (7-18); CALCIUM 8.8 mg/dL (8.5-10.1)
[2021-07-24 09:10] LABS: BILIRUBIN,DIRECT 0.2 mg/dL (0.0-0.2)
[2021-07-24 09:12] LABS: BILIRUBIN,TOTAL 1.4 mg/dL (0.2-1); TOT PROT 5.4 g/dl (6.4-8.2)
[2021-07-24] MEDS: CLOPIDOGREL BISULFATE 75 MG TABLET (FP) PO SCH (09:13)
[2021-07-24] MEDS: ASPIRIN 81 MG CHEWABLE TABLETS PO SCH (09:13)
[2021-07-24] MEDS: metoPROLOL SUCCINATE 25 MG TAB.SR.24H (FP) PO SCH (09:13)
[2021-07-24] MEDS: PANTOPRAZOLE SODIUM 40 MG VIAL IVPUSH SCH (09:14)
[2021-07-24] MEDS: ENOXAPARIN NA (PORCINE) 80 MG/0.8 ML DISP.SYRIN SQ SCH ×2 (09:14→21:11)
[2021-07-24] MEDS: DEXAMETHASONE 2 MG TABLET PO SCH (09:14)
[2021-07-24] MEDS: BUDESONIDE/FORMETEROL FUMARATE 160/4.5 mcg INHALER IH SCH ×2 (09:26→21:25)
[2021-07-24] MEDS: ALBUTEROL SO4 HFA INHALER IH SCH (09:26)
[2021-07-24] MEDS ORDERED: ALBUTEROL SO4 HFA INHALER IH PRN (11:51)
[2021-07-24] MEDS: LOSARTAN POTASSIUM 25 MG TABLET PO SCH (11:54)
[2021-07-24] MEDS ORDERED: CHOLECALCIFEROL (VIT D3) 1,000 UNIT (25 MCG) TABLET PO ONE (18:19)
[2021-07-24] MEDS: MULTIVITAMINS (DAILY MVI) TABLET (FP) PO SCH (18:45)
[2021-07-24] MEDS: ZINC SULFATE 220 MG CAPSULE (FP) PO SCH (18:46)
[2021-07-24] MEDS: ASCORBIC ACID 500 MG TABLET (FP) PO SCH (21:10)
[2021-07-24] MEDS: ATORVASTATIN CA 40 MG TABLET (FP) PO SCH (21:10)
[2021-07-24] MEDS: ZOLPIDEM TARTRATE 5 MG TABLET PO PRN (21:10)
[2021-07-25 08:24] LABS: HEMATOCRIT 42.7 % (35.4-49); HEMOGLOBIN 13.8 GM/dL (11.7-16.9); MCH 27.3 pg (25.7-33.7); MCHC 32.2 g/dl (32.0-35.9); MEAN CELL VOLUME 84.7 fl (80-96); MEAN PLT VOLUME 7.4 fl (7.5-11.1); PLATELET COUNT 313 10^3/uL (134-434); RBC 5.04 M/mm3 (4.00-5.60); RDW 13.2 % (11.9-15.9); WHITE BLOOD COUNT 18.9 K/mm3 (4.0-10.0)
[2021-07-25 08:42] LABS: CALCIUM 8.7 mg/dL (8.5-10.1)
[2021-07-25 08:43] LABS: ALBUMIN 2.5 g/dl (3.4-5.0)
[2021-07-25 08:45] LABS: BLOOD UREA NITROGEN 32.9 mg/dL (7-18)
[2021-07-25] MEDS ORDERED: PT OWN MED DRAWER 7, Y5N ONE (08:45)
[2021-07-25 08:46] LABS: CREATININE 0.7 mg/dL (0.55-1.3)
[2021-07-25 08:47] LABS: TOT PROT 5.6 g/dl (6.4-8.2)
[2021-07-25 08:48] LABS: BILIRUBIN,TOTAL 0.5 mg/dL (0.2-1)
[2021-07-25] MEDS: metoPROLOL SUCCINATE 25 MG TAB.SR.24H (FP) PO SCH (09:15)
[2021-07-25] MEDS: ASCORBIC ACID 500 MG TABLET (FP) PO SCH ×2 (09:16→21:09)
[2021-07-25] MEDS: LOSARTAN POTASSIUM 25 MG TABLET PO SCH (09:16)
[2021-07-25] MEDS: CHOLECALCIFEROL (VIT D3) 1,000 UNIT (25 MCG) TABLET PO SCH (09:16)
[2021-07-25] MEDS: ASPIRIN 81 MG CHEWABLE TABLETS PO SCH (09:16)
[2021-07-25] MEDS: MULTIVITAMINS (DAILY MVI) TABLET (FP) PO SCH (09:16)
[2021-07-25] MEDS: CLOPIDOGREL BISULFATE 75 MG TABLET (FP) PO SCH (09:16)
[2021-07-25] MEDS: ZINC SULFATE 220 MG CAPSULE (FP) PO SCH (09:16)
[2021-07-25] MEDS: ENOXAPARIN NA (PORCINE) 80 MG/0.8 ML DISP.SYRIN SQ SCH ×2 (09:17→21:09)
[2021-07-25] MEDS: PANTOPRAZOLE SODIUM 40 MG VIAL IVPUSH SCH (09:17)
[2021-07-25] MEDS: BUDESONIDE/FORMETEROL FUMARATE 160/4.5 mcg INHALER IH SCH ×2 (09:19→21:20)
[2021-07-25] MEDS ORDERED: LOSARTAN POTASSIUM 50 MG TABLET PO SCH (10:19)
[2021-07-25] MEDS: ZOLPIDEM TARTRATE 5 MG TABLET PO PRN (21:08)
[2021-07-25] MEDS: ATORVASTATIN CA 40 MG TABLET (FP) PO SCH (21:09)
[2021-07-26] MEDS: metoPROLOL SUCCINATE 25 MG TAB.SR.24H (FP) PO SCH (10:44)
[2021-07-26] MEDS: CHOLECALCIFEROL (VIT D3) 1,000 UNIT (25 MCG) TABLET PO SCH (10:44)
[2021-07-26] MEDS: ZINC SULFATE 220 MG CAPSULE (FP) PO SCH (10:44)
[2021-07-26] MEDS: ASCORBIC ACID 500 MG TABLET (FP) PO SCH (10:44)
[2021-07-26] MEDS: ASPIRIN 81 MG CHEWABLE TABLETS PO SCH (10:44)
[2021-07-26] MEDS: MULTIVITAMINS (DAILY MVI) TABLET (FP) PO SCH (10:44)
[2021-07-26] MEDS: ENOXAPARIN NA (PORCINE) 80 MG/0.8 ML DISP.SYRIN SQ SCH (10:45)
[2021-07-26] MEDS: PANTOPRAZOLE SODIUM 40 MG VIAL IVPUSH SCH (10:45)
[2021-07-26] MEDS: CLOPIDOGREL BISULFATE 75 MG TABLET (FP) PO SCH (10:45)
[2021-07-26] MEDS: BUDESONIDE/FORMETEROL FUMARATE 160/4.5 mcg INHALER IH SCH (10:58)
[2021-07-26 15:22] VITALS: BP 101/76; PULSE 102; TEMP 98.5
== END 2021-07-26 16:00 | disposition home or self-care (01) | DRG 177 ==
LOC: JER 06:50 → JERBED 10:46 → J4S 15:54
PROVIDERS: ADMIT Internal Medicine; ATTEND Internal Medicine
DX: U07.1 COVID-19 (principal); J12.82 Pneumonia due to coronavirus disease 2019; J96.01 Acute respiratory failure with hypoxia; I21.4 Non-ST elevation (NSTEMI) myocardial infarction; I24.8 Other forms of acute ischemic heart disease; I47.1 Supraventricular tachycardia; I25.119 Atherosclerotic heart disease of native coronary artery with unspecified angina pectoris; Z98.61 Coronary angioplasty status; D72.829 Elevated white blood cell count, unspecified; I11.9 Hypertensive heart disease without heart failure; E78.00 Pure hypercholesterolemia, unspecified; R79.89 Other specified abnormal findings of blood chemistry; E78.5 Hyperlipidemia, unspecified; E66.9 Obesity, unspecified; Z68.27 Body mass index [BMI] 27.0-27.9, adult; R74.01 Elevation of levels of liver transaminase levels; N40.0 Benign prostatic hyperplasia without lower urinary tract symptoms; R07.9 Chest pain, unspecified; K76.0 Fatty (change of) liver, not elsewhere classified
CPT/HCPCS: 36415; 71045-TC-FY; 71275-TC; 80048; 80053; 80061; 80076; 82550; 82553; 82728; 82962; 83036; 83615; 83735; 83880; 84100; 84484; 85025; 85027; 85379; 85651; 86140; 93005; 93010; 94761; 97116-GP; 97161-GP; 99291; C9803-CS; Q9967; U0003; U0005